=== PATIENT | female | born 1975 | race Caucasian/White ===

== ENCOUNTER 2016-05-17 06:00 | Emergency (ER) | payer OTHER ==
[2016-05-17 06:48] VITALS: BP 119/67; PULSE 81; TEMP 98.3; BMI 34.7
[2016-05-17] MEDS ORDERED: IBUPROFEN 400 MG TABLET (FP) PO ONE ×2 (08:45→08:52)
--- NOTE | 2016-05-17 08:52 | PDOC ---
History of Present Illness - General Chief Complaint: Pain Stated Complaint: RT WRIST PAIN Time Seen by Provider: 05/17/16 08:37 History Source: Patient - History of Present Illness Occurred: reports: other (last night) Upper Extremity Pain Location: right: wrist Past History - Past Medical History Allergies/Adverse Reactions: Allergies Allergy/AdvReac Type Severity Reaction Status Date / Time levofloxacin [From Levaquin] Allergy Mild Itching Verified 02/09/16 06:08 PECANS Allergy Hives Uncoded 02/09/16 06:08 WALNUTS Allergy Uncoded 02/09/16 06:08 Home Medications: Ambulatory Orders Loratadine [Claritin -] 10 mg PO DAILY 11/27/15 Fluticasone/Salmeterol [Advair 250-50 Diskus] 1 each IH BID 02/09/16 Ibuprofen [Motrin -] 600 mg PO TID PRN #21 tablet 02/09/16 Arm Brace [Wrist Brace] 1 each MC ASDIR #1 each 05/17/16 Ibuprofen [Motrin -] 800 mg PO Q6H #30 tablet 05/17/16 Asthma: Yes - Surgical History Appendectomy: Yes - Immunization History Immunization Up to Date: No - Psycho/Social/Smoking Cessation Hx Anxiety: No Suicidal Ideation: No Smoking Status: Yes Smoking History: Never smoked Have you smoked in the past 12 months: No Number of Cigarettes Smoked Daily: 0 If you are a former smoker, when did you quit?: june 2011 Information on smoking cessation initiated: No Hx Alcohol Use: No Drug/Substance Use Hx: No Substance Use Type: None Hx Substance Use Treatment: No Review of Systems - Review of Systems Constitutional: No: Chills, Fever Musculoskeletal: Yes: Joint Pain. No: Joint Swelling Neurological: No: Numbness, Tingling *Physical Exam - Vital Signs Last Vital Signs Temp Pulse Resp BP Pulse Ox 98.3 F 81 20 119/67 98 05/17/16 06:46 05/17/16 06:46 05/17/16 06:46 05/17/16 06:46 05/17/16 06:46 - Physical Exam General Appearance: Yes: Appropriately Dressed. No: Apparent Distress HEENT: positive: Normal Voice Neck: positive: Supple Respiratory/Chest: negative: Respiratory Distress Musculoskeletal: positive: Normal Inspection Extremity: positive: Normal Inspection, Tender. negative: Swelling (to R wrist diffusely, no swelling or skin changes, no sensory change when nerve is tapped, unabel to jamila phalens's) Medical Decision Making - Medical Decision Making 05/17/16 08:53 40-year-old female, denies any past medical history, here with right wrist pain. Patient states she developed wrist pain last night. States pain located to right wrist diffusely, described as achy and worse with any movement. No sensory changes. Has not taken anything for symptoms. Patient states she believes she might have carpal tunnel because she uses computer daily at work. Patient well-appearing and stable with diffuse tenderness to palpation to R wrist, no swelling. Neg tinel's test and unable to tolerate phalan's 2/2 pain. Pain most likely muscular, i.e., overuse, carpal tunnel, etc. Will dc with pain control wrist brace and orthopedic follow-up 05/17/16 08:58 *DC/Admit/Observation/Transfer Diagnosis at time of Disposition: Wrist pain, right - Discharge Dispostion Disposition: HOME Condition at time of disposition: Good - Prescriptions Prescriptions: Ibuprofen [Motrin -] 800 mg PO Q6H #30 tablet Arm Brace [Wrist Brace] 1 each ASDIR #1 each - Patient Instructions Additional Instructions: Please follow up with orthopedics if pain continues
--- NOTE | 2016-05-17 13:11 | PDOC ---
*Physical Exam - Vital Signs Last Vital Signs Temp Pulse Resp BP Pulse Ox 98.3 F 81 20 119/67 98 05/17/16 06:46 05/17/16 06:46 05/17/16 06:46 05/17/16 06:46 05/17/16 06:46 ED Treatment Course - Medications Given in the ED: ED Medications Discontinued Medications Generic Name Dose Route Start Last Admin Trade Name Cici PRN Reason Stop Dose Admin Ibuprofen 800 mg 05/17/16 08:45 05/17/16 08:55 Motrin - PO 05/17/16 08:46 800 mg ONCE ONE Administration Medical Decision Making - Medical Decision Making The patient was seen and evaluated in conjunction with JF Mccray under my direct supervision, ancillary studies were reviewed. I independently interviewed and evaluated the patient and I agree with the plan as outlined by JF Mccray . *DC/Admit/Observation/Transfer Diagnosis at time of Disposition: Wrist pain, right - Prescriptions Prescriptions: Ibuprofen [Motrin -] 800 mg PO Q6H #30 tablet Arm Brace [Wrist Brace] 1 each ASDIR #1 each - Referrals Referrals: Phillip Haas MD [Primary Care Provider] - - Patient Instructions Additional Instructions: Please follow up with orthopedics if pain continues - Post Discharge Activity
== END 2016-05-17 09:00 | disposition home or self-care (01) ==
LOC: JER 06:00
DX: M25.531 Pain in right wrist (principal); M70.831 Other soft tissue disorders related to use, overuse and pressure, right forearm; Y93.C1 Activity, computer keyboarding; J45.909 Unspecified asthma, uncomplicated
CPT/HCPCS: 99282-25

== ENCOUNTER → 2016-08-05 | Emergency (ER) | payer OTHER ==
[~2016-08-05] MED LIST: ACETAMINOPHEN INJECTION 0 ML IVPB ONE
[2016-08-05 16:08] VITALS: BP 119/82; PULSE 94; TEMP 98.2; BMI 34.7
[2016-08-05 19:02] LABS: URINE APPEARANCE SLCLOUDY; URINE BILIRUBIN NEGATIVE (NEGATIVE); URINE BLOOD NEGATIVE (NEGATIVE); URINE COLOR LTYELLOW; URINE GLUCOSE (UA) NEGATIVE (NEGATIVE); URINE KETONE NEGATIVE (NEGATIVE); URINE LEUK ESTERASE NEGATIVE (NEGATIVE); URINE NITRITE NEGATIVE (NEGATIVE); URINE PROTEIN NEGATIVE (NEGATIVE); URINE UROBILINOGEN NEGATIVE E.U./dl (0.2-1.0)
== END | disposition left against medical advice (07) ==
LOC: JER 15:58
DX: Z53.21 Procedure and treatment not carried out due to patient leaving prior to being seen by health care provider (principal)
CPT/HCPCS: 81003; 84703; 99282-25

== ENCOUNTER 2016-09-06 11:32 | Emergency (ER) | payer OTHER ==
[2016-09-06 11:42] VITALS: TEMP 98.2; BMI 34.7
--- NOTE | 2016-09-06 11:55 | PDOC ---
History of Present Illness - General History Source: Patient, Old Records Exam Limitations: No Limitations - History of Present Illness Initial Comments: 09/06/16 12:39 The patient is a 40 year old female with past medical history of asthma who presents to the ED with vaginal bleeding that began today. The patient states that she is 5 weeks . She reports bright red heavy bleeding today but denies any clotting. She also reports that she has been experiencing lower abdominal pain since before she even found out she was , which has worsened today. The patient reports having prior pregnancies where all were full term and without complications. She denies any recent illness, fever, chills, nausea, vomiting, diarrhea, cough, shortness of breath, chest pain, or urinary symptoms. COLORECTAL SURGEON: Jessica Griffith <Bijal Cantrell - Last Filed: 09/06/16 15:08> <Radhika Shukla - Last Filed: 09/07/16 10:20> - General Chief Complaint: Vaginal Bleeding Stated Complaint: 5 WKS/VAGINAL BLEEDING/POSS MISCAR Time Seen by Provider: 09/06/16 11:52 Past History <Bijal Cantrell - Last Filed: 09/06/16 15:08> - Past Medical History Asthma: Yes - Surgical History Appendectomy: Yes - Immunization History Immunization Up to Date: No - Psycho/Social/Smoking Cessation Hx Anxiety: No Suicidal Ideation: No Smoking Status: Yes Smoking History: Never smoked Have you smoked in the past 12 months: No Number of Cigarettes Smoked Daily: 0 If you are a former smoker, when did you quit?: june 2011 Hx Alcohol Use: No Drug/Substance Use Hx: No Substance Use Type: None Hx Substance Use Treatment: No <Radhika Shukla - Last Filed: 09/07/16 10:20> - Past Medical History Allergies/Adverse Reactions: Allergies Allergy/AdvReac Type Severity Reaction Status Date / Time levofloxacin [From Levaquin] Allergy Mild Itching Verified 09/06/16 11:42 PECANS Allergy Hives Uncoded 09/06/16 11:42 WALNUTS Allergy Uncoded 09/06/16 11:42 Home Medications: Ambulatory Orders Loratadine [Claritin -] 10 mg PO DAILY 11/27/15 Fluticasone/Salmeterol [Advair 250-50 Diskus] 1 each IH BID 02/09/16 Ibuprofen [Motrin -] 600 mg PO TID PRN #21 tablet 02/09/16 Arm Brace [Wrist Brace] 1 each MC ASDIR #1 each 05/17/16 Ibuprofen [Motrin -] 800 mg PO Q6H #30 tablet 05/17/16 Review of Systems - Review of Systems Able to Perform ROS?: Yes Comments:: 09/06/16 12:39 GENERAL/CONSTITUTIONAL: No fever or chills. No weakness. HEAD, EYES, EARS, NOSE AND THROAT: No change in vision. No ear pain or discharge. No sore throat. CARDIOVASCULAR: No chest pain or shortness of breath. RESPIRATORY: No cough, wheezing, or hemoptysis. GASTROINTESTINAL: Present: lower abdominal pain No nausea, vomiting, diarrhea or constipation. GENITOURINARY: Present: vaginal bleeding No dysuria, frequency, or change in urination. MUSCULOSKELETAL: No joint or muscle swelling or pain. No neck or back pain. SKIN: No rash NEUROLOGIC: No headache, vertigo, loss of consciousness, or change in strength/ sensation. ENDOCRINE: No increased thirst. No abnormal weight change. HEMATOLOGIC/LYMPHATIC: No anemia, easy bleeding, or history of blood clots. ALLERGIC/IMMUNOLOGIC: No hives or skin allergy. All Other Systems: Reviewed and Negative <Bijal Cantrell - Last Filed: 09/06/16 15:08> *Physical Exam - Vital Signs Last Vital Signs Temp Pulse Resp BP Pulse Ox 98.2 F 88 20 113/60 99 09/06/16 11:39 09/06/16 11:39 09/06/16 11:39 09/06/16 11:39 09/06/16 11:39 - Physical Exam Comments: 09/06/16 12:43 <Bijal siegel - Last Filed: 09/06/16 15:08> - Vital Signs Last Vital Signs Temp Pulse Resp BP Pulse Ox 98.2 F 88 20 113/60 99 09/06/16 11:39 09/06/16 11:39 09/06/16 11:39 09/06/16 11:39 09/06/16 11:39 - Physical Exam Comments: GENERAL: Awake, alert, and fully oriented, in no acute distress HEAD: No signs of trauma EYES: PERRLA, EOMI, sclera anicteric, conjunctiva clear ENT: Auricles normal inspection, hearing grossly normal, nares patent, oropharynx clear without exudates. Moist mucosa NECK: Normal ROM, supple, no lymphadenopathy, JVD, or masses LUNGS: Breath sounds equal, clear to auscultation bilaterally. No wheezes, and no crackles HEART: Regular rate and rhythm, normal S1 and S2, no murmurs, rubs or gallops ABDOMEN: Soft, nontender, normoactive bowel sounds. No guarding, no rebound. No masses EXTREMITIES: Normal range of motion, no edema. No clubbing or cyanosis. No cords, erythema, or tenderness NEUROLOGICAL: Cranial nerves II through XII grossly intact. Normal speech, normal gait SKIN: Warm, Dry, normal turgor, no rashes or lesions noted. : No external lesions. +Mod blood in the vault. Os closed. Adnexae nontender. <Radhika Shukla - Last Filed: 09/07/16 10:20> ED Treatment Course - LABORATORY CBC & Chemistry Diagram: 09/06/16 12:09 09/06/16 12:09 - RADIOLOGY Radiograph Interpretation: 09/06/16 14:31 Transvaginal ultrasound as reviewed by Dr. Edwards reports 2.5 cm fluid stricture seen in left superolateral aspect of the uterus. It is undetermined if this represents anembryonic intrauterine gestation in an unusual eccentric location versus possibility of interstitial ectopic . <Bijal Cantrell - Last Filed: 09/06/16 15:08> - LABORATORY CBC & Chemistry Diagram: 09/06/16 12:09 09/06/16 12:09 <Radhika Shukla - Last Filed: 09/07/16 10:20> Medical Decision Making - Medical Decision Making 09/06/16 14:52 Phone call placed to patient's COLORECTAL SURGEON. Awaiting call back 09/06/16 15:06 Second phone call placed to Dr. Griffith. Call connected and case discussed. <Bijal Cantrell - Last Filed: 09/06/16 15:08> - Medical Decision Making Case d/w Dr. Griffith via phone. History and US findings are most consistent with a miscarriage in progress. She does not want any intervention at this time. Recommended close outpatient follow-up, call her office on Thursday (it is currently Thursday) for follow-up. Counseled patient to return if she has heavy bleeding and/or symptoms of anemia. <Radhika Shukla - Last Filed: 09/07/16 10:20> *DC/Admit/Observation/Transfer - Attestations Scribe Attestion: 09/06/16 12:43 Documentation prepared by Bijal Cantrell, acting as medical record librarians teacher for Radhika Shukla MD. <Bijal Cantrell - Last Filed: 09/06/16 15:08> - Discharge Dispostion Admit: No <Radhika Shukla - Last Filed: 09/07/16 10:20> Diagnosis at time of Disposition: Miscarriage, threatened, early - Discharge Dispostion Disposition: HOME Condition at time of disposition: Stable - Referrals Referrals: Jessica Griffith MD [Staff Physician] - - Patient Instructions Printed Discharge Instructions: DI for Threatened Additional Instructions: CALL DR. GRIFFITH FOR APPOINTMENT ON THURSDAY. IF THE BLEEDING GETS HEAVY, YOU GET LIGHTHEADED, OR ANY OTHER CONCERNS, RETURN TO THE ER IMMEDIATELY. YOU MAY CONTINUE TO HAVE SOME BLEEDING AND CRAMPING.
[2016-09-06 12:17] LABS: BASOPHIL 0.7 % (0-2.0); EOSINOPHIL 2.4 % (0-4.5); MCH 32.4 pg (25.7-33.7); MCHC 34.7 g/dl (32.0-36.0); MEAN CELL VOLUME 93.4 fl (80-96); MEAN PLT VOLUME 7.7 fl (7.5-11.1); NEUTROPHILS 62.5 % (42.8-82.8); PLATELET COUNT 251 K/MM3 (134-434); RDW 13.7 % (11.6-15.6); WHITE BLOOD COUNT 9.7 K/mm3 (4.0-10.0)
[2016-09-06 12:18] LABS: URINE APPEARANCE CLOUDY; URINE BILIRUBIN NEGATIVE (NEGATIVE); URINE COLOR RED; URINE GLUCOSE (UA) NEGATIVE (NEGATIVE); URINE KETONE NEGATIVE (NEGATIVE); URINE NITRITE NEGATIVE (NEGATIVE); URINE UROBILINOGEN NEGATIVE E.U./dl (0.2-1.0)
[2016-09-06] MEDS ORDERED: ACETAMINOPHEN 1000 MG/100 ML VIAL (NON FORMULARY) IVPB ONE (12:34)
[2016-09-06] MEDS ORDERED: SODIUM CHLORIDE 1,000 ML IV STA (12:34)
[2016-09-06 12:40] LABS: URINE BLOOD 2+ (NEGATIVE); URINE LEUK ESTERASE TRACE (NEGATIVE); URINE PROTEIN 2+ (NEGATIVE)
[2016-09-06 12:43] LABS: ALBUMIN 3.2 g/dl (3.4-5.0); ANION GAP 10 (8-16); BILIRUBIN,TOTAL 0.7 mg/dL (0.2-1.0); CALCIUM 8.8 mg/dL (8.5-10.1); CO2 23 mmol/L (21-32); CREATININE 0.6 mg/dL (0.55-1.02); GLUCOSE,RANDOM 98 mg/dL (74-106); SGOT/AST 15 U/L (15-37); SGPT/ALT 20 U/L (12-78); TOT PROT 6.3 g/dl (6.4-8.2)
[2016-09-06 12:58] LABS: ALK PHOS 100 U/L (45-117)
[2016-09-06 13:01] LABS: URINE RBC 6122 /hpf (0-3)
[2016-09-06] MEDS ORDERED: ACETAMINOPHEN INJECTION 100 ML IVPB ONE (13:04)
[2016-09-06 15:31] VITALS: BP 112/80; PULSE 89
== END 2016-09-06 15:30 | disposition home or self-care (01) ==
LOC: JER 11:32
DX: O02.1 Missed abortion (principal); Z3A.01 Less than 8 weeks gestation of pregnancy
CPT/HCPCS: 36415; 76817-TC; 80053; 81003; 81015; 84702; 85025; 86850; 86900; 86901; 99283-25

== ENCOUNTER 2016-10-21 11:31 | Inpatient (IN) | payer OTHER ==
[2016-10-21 11:42] VITALS: BMI 34.7
--- NOTE | 2016-10-21 12:40 | PDOC ---
Attending Attestation - Resident Resident Name: JoseShahab - ED Attending Attestation I have performed the following: I have examined & evaluated the patient, The case was reviewed & discussed with the resident, I agree w/resident's findings & plan, Exceptions are as noted - HPI HPI: 40 yo F sent by PMD for cellulitis to L foot. She states that she noticed a small swollen area which rapidly became more erythematous. She saw Dr. Haas for it, he performed an I&D, with bloody drainage and extraction of a small feather. She is uncertain how the feather came to be in her skin. She was started on Bactrim, but the redness worsened. Yesterday she was given a dose of rocephin in Dr. Haas's office, but the redness has worsened. She was sent to ED for failure of outpatient treatment for the cellulitis. - Physicial Exam PE: GENERAL: Awake, alert, and fully oriented, in no acute distress HEAD: No signs of trauma EYES: PERRLA, EOMI, sclera anicteric, conjunctiva clear ENT: Auricles normal inspection, hearing grossly normal, nares patent, oropharynx clear without exudates. Moist mucosa NECK: Normal ROM, supple, no lymphadenopathy, JVD, or masses LUNGS: Breath sounds equal, clear to auscultation bilaterally. No wheezes, and no crackles HEART: Regular rate and rhythm, normal S1 and S2, no murmurs, rubs or gallops ABDOMEN: Soft, nontender, normoactive bowel sounds. No guarding, no rebound. No masses EXTREMITIES: Normal range of motion. No clubbing or cyanosis. No cords, erythema, or tenderness NEUROLOGICAL: Cranial nerves II through XII grossly intact. Normal speech, normal gait SKIN: Warm, Dry, normal turgor. L foot with erythema over the 3rd and 4th toes, with serosanguineous drainage from the same. Erythema and swelling extending to the level of the ankle. - Medical Decision Making Patient with cellulitis, failed outpatient treatment. Will start on vanco. Wound culture sent in ED, however, patient was already on Bactrim as an outpatient, this may obscure the results.
--- NOTE | 2016-10-21 12:44 | PDOC ---
History of Present Illness <Radhika Shukla - Last Filed: 10/21/16 14:40> - History of Present Illness Initial Comments: 10/21/16 12:44 40F w/ no significant PMH presenting with 6 days of left foot infection. Pt reports being in her USOH until 6 days ago when she woke up with a small red papule on her left foot. It progressed in size, started causing her pain, and her foot began swelling up. Yesterday, pt went to PMD (Dr. Lozano), had a temp of 100.8 with a wbc count of 11.2. They performed an I&D which drained "mostly blood and a feather," gave IV rocephin and prescribed bactrim. Pt was told to come back today to check on it, and was then instructed to come to ED. Pt reports 10/10 pain and no subjective fevers or chills. 10/21/16 12:52 10/21/16 15:00 <Shahab Garcia - Last Filed: 10/21/16 15:47> - General Chief Complaint: Wound Infection Stated Complaint: PCP SENT Time Seen by Provider: 10/21/16 12:16 Past History <Radhika Shukla - Last Filed: 10/21/16 14:40> - Past Medical History Asthma: Yes Comment:: 10/21/16 12:50 Asthma Fibroids Appendectomy and "some type of bowel surgery as child" - Surgical History Appendectomy: Yes - Immunization History Immunization Up to Date: No - Psycho/Social/Smoking Cessation Hx Anxiety: No Suicidal Ideation: No Smoking Status: Yes Smoking History: Former smoker Have you smoked in the past 12 months: No Number of Cigarettes Smoked Daily: 0 If you are a former smoker, when did you quit?: 3yrs Information on smoking cessation initiated: No Hx Alcohol Use: No Drug/Substance Use Hx: No Substance Use Type: None Hx Substance Use Treatment: No <Shahab Garcia - Last Filed: 10/21/16 15:47> - Past Medical History Allergies/Adverse Reactions: Allergies Allergy/AdvReac Type Severity Reaction Status Date / Time levofloxacin [From Levaquin] Allergy Mild Itching Verified 10/21/16 11:42 PECANS Allergy Hives Uncoded 10/21/16 11:42 WALNUTS Allergy Uncoded 10/21/16 11:42 Home Medications: Ambulatory Orders Loratadine [Claritin -] 10 mg PO DAILY 11/27/15 Fluticasone/Salmeterol [Advair 250-50 Diskus] 1 each IH BID 02/09/16 Acetaminophen W/ Codeine #3 [Tylenol # 3 -] 1 tab PO TID PRN 10/21/16 Sulfamethoxazole/Trimethoprim [Bactrim Ds -] 1 tab PO DAILY 10/21/16 Review of Systems - Review of Systems Comments:: 10/21/16 12:51 Denies night sweats, chills, [place], dizziness, chest pain, palpitations, SOB, wheezing, n/v/d/c, abdominal pain, dysuria, urgency, frequency, and any extremity pain or swelling other than on left foot 10/21/16 15:37 10/21/16 15:40 <Shahab Garcia - Last Filed: 10/21/16 15:47> *Physical Exam - Vital Signs Last Vital Signs Temp Pulse Resp BP Pulse Ox 98.8 F 114 H 18 127/90 98 10/21/16 11:34 10/21/16 11:34 10/21/16 11:34 10/21/16 11:34 10/21/16 11:34 <Radhika Shukla - Last Filed: 10/21/16 14:40> - Vital Signs Last Vital Signs Temp Pulse Resp BP Pulse Ox 98.8 F 114 H 18 127/90 98 10/21/16 11:34 10/21/16 11:34 10/21/16 11:34 10/21/16 11:34 10/21/16 11:34 - Physical Exam Comments: 10/21/16 12:53 General: middle aged female, A&Ox3 in NAD Cardiac: tachycardic, normal rhythm, no m/r/g Pulm: CTAB, no wheezing, no rales Abd: soft, NT, ND, no organomegaly Extremities: L foot has a rash which is erythematous, swollen up to ankle, warm to touch, has site of incision between 3rd and 4th toes. There is a small area of fluctuance on distal dorsum of foot. The rash is about 10cm. 10/21/16 13:12 <Shahab Garcia - Last Filed: 10/21/16 15:47> ED Treatment Course - LABORATORY CBC & Chemistry Diagram: 10/21/16 12:49 10/21/16 12:49 - ADDITIONAL ORDERS Additional order review: Laboratory Results 10/21/16 12:49 Sodium 138 Potassium 4.3 Chloride 104 Carbon Dioxide 28 D Anion Gap 6 L BUN 10 D Creatinine 0.9 D Creat Clearance w eGFR > 60 Random Glucose 125 H D Calcium 8.4 L Total Bilirubin 0.7 AST 17 ALT 21 Alkaline Phosphatase 97 Total Protein 6.4 Albumin 3.4 10/21/16 12:49 RBC 4.15 MCV 95.5 MCHC 34.4 RDW 14.2 MPV 7.6 Neutrophils % 64.7 Lymphocytes % 26.1 Monocytes % 5.6 Eosinophils % 3.2 Basophils % 0.4 <Radhika Shukla - Last Filed: 10/21/16 14:40> - LABORATORY CBC & Chemistry Diagram: 10/21/16 12:49 10/21/16 12:49 <Shahab Garcia - Last Filed: 10/21/16 15:47> Medical Decision Making - Medical Decision Making 10/21/16 13:13 40F w/ no significant PMH presenting with worsening foot infection and tachycardia despite receiving IV ceftriaxone by PMD and being started on PO bactrim, likely cellulitis possibly secondary to MRSA. -obtain blood and wound cx -pain control with percocet -cbc with diff, bmp -foot XR- demonstrates no osteo or gas gangrene. -US -empiric abx with 1g of vanc -pt developed widespread pruritis and rash over chest, so was given 25mg of benadryl and pepcid. 10/21/16 13:17 10/21/16 15:01 10/21/16 15:30 <Shahab Garcia - Last Filed: 10/21/16 15:47> *DC/Admit/Observation/Transfer - Discharge Dispostion Admit: Yes <Radhika Shukla - Last Filed: 10/21/16 14:40> - Discharge Dispostion Admit: Yes - Attestations Physician Attestion: 10/21/16 13:17 I, Dr. Shahab Garcia, attest that this document has been prepared under my direction and personally reviewed by me in its entirety. I further attest, that it accurately reflects all work, treatment, procedures and medical decision -making performed by me. <Shahab Garcia - Last Filed: 10/21/16 15:47> Diagnosis at time of Disposition: Cellulitis of left foot - Discharge Dispostion Condition at time of disposition: Stable - Referrals
[2016-10-21] MEDS ORDERED: VANCOMYCIN 1 GRAM (PRE-DOCKED) 1,000 MG/250 ML BAG IVPB ONE (13:10)
[2016-10-21 13:57] LABS: BASOPHIL 0.4 % (0-2.0); EOSINOPHIL 3.2 % (0-4.5); MCH 32.9 pg (25.7-33.7); MCHC 34.4 g/dl (32.0-36.0); MEAN CELL VOLUME 95.5 fl (80-96); MEAN PLT VOLUME 7.6 fl (7.5-11.1); NEUTROPHILS 64.7 % (42.8-82.8); PLATELET COUNT 244 K/MM3 (134-434); RDW 14.2 % (11.6-15.6); WHITE BLOOD COUNT 9.2 K/mm3 (4.0-10.0)
[2016-10-21 14:16] LABS: ALBUMIN 3.4 g/dl (3.4-5.0); ANION GAP 6 (8-16); BILIRUBIN,TOTAL 0.7 mg/dL (0.2-1.0); CALCIUM 8.4 mg/dL (8.5-10.1); CO2 28 mmol/L (21-32); CREATININE 0.9 mg/dL (0.55-1.02); GLUCOSE,RANDOM 125 mg/dL (74-106); SGOT/AST 17 U/L (15-37); SGPT/ALT 21 U/L (12-78); TOT PROT 6.4 g/dl (6.4-8.2)
[2016-10-21 14:17] LABS: ALK PHOS 97 U/L (45-117)
[2016-10-21] MEDS ORDERED: FAMOTIDINE 20 MG/50 ML IVPB 50 ML IVPB ONE ×2 (14:41→15:05)
--- NOTE | 2016-10-21 14:51 | HP ---
Admitting History and Physical - Primary Care Physician PCP: Phillip Haas - Admission Chief Complaint: sent from my office for worsening left foot infection failed on oral antibiotics History of Present Illness: patient sent from my office, had an I and D in my office wbc 11.2 and fever 100.8, found to have a bird feather lodged in her foot. given iv rocephin and po bactrim however when she returned today and the skin infection worse and spreading. History Source: Patient - Past Medical History Pulmonary: Yes: Asthma ...LMP: 06/21/12 - Smoking History Smoking history: Former smoker Have you smoked in the past 12 months: No Aproximately how many cigarettes per day: 0 If you are a former smoker, when did you quit?: 3yrs - Alcohol/Substance Use Hx Alcohol Use: No Home Medications - Allergies Allergies/Adverse Reactions: Allergies Allergy/AdvReac Type Severity Reaction Status Date / Time levofloxacin [From Levaquin] Allergy Mild Itching Verified 10/21/16 11:42 PECANS Allergy Hives Uncoded 10/21/16 11:42 WALNUTS Allergy Uncoded 10/21/16 11:42 - Home Medications Home Medications: Ambulatory Orders Loratadine [Claritin -] 10 mg PO DAILY 11/27/15 Fluticasone/Salmeterol [Advair 250-50 Diskus] 1 each IH BID 02/09/16 Acetaminophen W/ Codeine #3 [Tylenol # 3 -] 1 tab PO TID PRN 10/21/16 Sulfamethoxazole/Trimethoprim [Bactrim Ds -] 1 tab PO DAILY 10/21/16 Review of Systems - Review of Systems Constitutional: reports: No Symptoms Eyes: reports: No Symptoms HENT: reports: No Symptoms Neck: reports: No Symptoms Cardiovascular: reports: No Symptoms Respiratory: reports: No Symptoms Gastrointestinal: reports: No Symptoms Genitourinary: reports: No Symptoms Musculoskeletal: reports: No Symptoms Integumentary: reports: Wound (left foot 6cm worsening rash/erythema) Neurological: reports: No Symptoms Endocrine: reports: No Symptoms Hematology/Lymphatic: reports: No Symptoms Physical Examination Vital Signs: Vital Signs Temperature 98.8 F 10/21/16 11:34 Pulse Rate 114 H 10/21/16 11:34 Respiratory Rate 18 10/21/16 11:34 Blood Pressure 127/90 10/21/16 11:34 O2 Sat by Pulse Oximetry (%) 98 10/21/16 11:34 Constitutional: Yes: Moderate Distress Eyes: Yes: WNL HENT: Yes: WNL Neck: Yes: WNL Cardiovascular: Yes: WNL Respiratory: Yes: WNL Gastrointestinal: Yes: WNL Renal/: Yes: WNL Musculoskeletal: Yes: Joint Swelling Extremities: Yes: Erythema Edema: Yes Edema: LLE: 2+ Peripheral Pulses WNL: Yes Integumentary: Yes: Erythema, Other Wound/Incision: Yes: Open to air (left foot edema with erythema, tenderness oozing sanguinous fluid) Neurological: Yes: WNL ...Motor Strength: WNL Psychiatric: Yes: WNL Labs: CBC, BMP 10/21/16 12:49 10/21/16 12:49 Imaging - Results X-ray: Report Reviewed Problem List - Problems (1) Cellulitis of left foot Code(s): L03.116 - CELLULITIS OF LEFT LOWER LIMB Assessment/Plan Iv abx sono/xray id consult pain control
--- NOTE | 2016-10-21 16:47 | PDOC ---
*Physical Exam - Vital Signs Last Vital Signs Temp Pulse Resp BP Pulse Ox 98.8 F 61 18 121/69 100 10/21/16 11:34 10/21/16 15:38 10/21/16 15:38 10/21/16 15:38 10/21/16 15:38 ED Treatment Course - LABORATORY CBC & Chemistry Diagram: 10/21/16 12:49 10/21/16 12:49 - ADDITIONAL ORDERS Additional order review: Laboratory Results 10/21/16 12:49 Sodium 138 Potassium 4.3 Chloride 104 Carbon Dioxide 28 D Anion Gap 6 L BUN 10 D Creatinine 0.9 D Creat Clearance w eGFR > 60 Random Glucose 125 H D Calcium 8.4 L Total Bilirubin 0.7 AST 17 ALT 21 Alkaline Phosphatase 97 Total Protein 6.4 Albumin 3.4 10/21/16 12:49 RBC 4.15 MCV 95.5 MCHC 34.4 RDW 14.2 MPV 7.6 Neutrophils % 64.7 Lymphocytes % 26.1 Monocytes % 5.6 Eosinophils % 3.2 Basophils % 0.4 - Medications Given in the ED: ED Medications Discontinued Medications Generic Name Dose Route Start Last Admin Trade Name Collinq PRN Reason Stop Dose Admin Diphenhydramine HCl 25 mg 10/21/16 14:38 10/21/16 14:50 Benadryl Injection - IVPUSH 10/21/16 14:39 25 mg ONCE ONE Administration Famotidine/Sodium Chloride 50 mls @ 100 mls/hr 10/21/16 14:41 10/21/16 15:06 Pepcid 20 Mg Premixed Ivpb - IVPB 10/21/16 15:10 100 mls/hr ONCE ONE Administration Oxycodone/Acetaminophen 1 combo 10/21/16 14:15 10/21/16 14:30 Percocet 5/325 - PO 10/21/16 14:16 1 combo ONCE ONE Administration Vancomycin HCl 1,000 mg 10/21/16 13:10 10/21/16 14:23 Vancomycin (Pre-Docked) IVPB 10/21/16 13:11 1,000 mg ONCE ONE Administration Protocol Progress Note - Progress Note Progress Note: requested to perform ultrasound of left foot r/o abscess focused ED ultrasound limited left foot, indication : r/o abscess cobble stoning noted anterior dorsum foot. dorsum of proximal portion of third toe, 1.0 x 0.9 cm. impression: small toe abscess 0.9 x 0.9 cm, foot cellulitis cirilli Procedure note: I& D performed, drained small amount serosanginous material. irrigated. and dressed 1%lidocaine used. tolerated well. cirilli *DC/Admit/Observation/Transfer Diagnosis at time of Disposition: Cellulitis of left foot - Discharge Dispostion Condition at time of disposition: Stable
[2016-10-21] MEDS ORDERED: PNEUMOC 13-VAL CONJ-DIP CRM/PF 0.5 ML DISP.SYRIN IM ONE (17:02)
[2016-10-21] MEDS: oxyCODONE HCL 5 MG TABLET PO PRN (20:51)
[2016-10-21] MEDS: ACETAMINOPHEN 325 MG TABLET (FP) PO PRN (20:52)
[2016-10-21] MEDS ORDERED: oxyCODONE HCL 5 MG TABLET PO PRN (21:00)
[2016-10-21] MEDS: FLUTICASONE/SALMETEROL 100 MCG/50 MCG DISKUS IH SCH (22:35)
[2016-10-22] MEDS: ACETAMINOPHEN 325 MG TABLET (FP) PO PRN ×3 (04:00→17:02)
[2016-10-22] MEDS: oxyCODONE HCL 5 MG TABLET PO PRN ×3 (04:00→17:01)
[2016-10-22] MEDS ORDERED: PT OWN MED DRAWER 7, Y5N ONE (09:46)
[2016-10-22] MEDS: FLUTICASONE/SALMETEROL 100 MCG/50 MCG DISKUS IH SCH ×2 (09:48→22:52)
--- NOTE | 2016-10-22 14:03 | CONSULT ---
Consult Consult Specialty:: infectious diseases Reason for Consultation:: cellulitis of the left foot with abscess at the base of the 3rd toe - History of Present Illness Chief Complaint: pain and swelling of the left leg and abscess of the 3rd toe History of Present Illness: 40 yo F swith pmh of asthma coming in with cellulitis of L foot with abscess drained from the 3rd toe of the foot. She states that she noticed a small swollen area which rapidly became more erythematous. She went to her primary doctos office an I&D, with bloody drainage and extraction of a small feather. She is uncertain how the feather came to be in her skin. She was started on Bactrim, but the redness worsened. Yesterday she was given a dose of rocephin in pcp . office, but the redness has worsened. She was admitted for worsening cellulitits of the left foot patient denies that she has diabetes or any other medical issues - History Source History Provided By: Patient Limitations to Obtaining History: No Limitations - Past Medical History Pulmonary: Yes: Asthma ...LMP: 06/21/12 - Alcohol/Substance Use Hx Alcohol Use: No - Smoking History Smoking history: Former smoker Have you smoked in the past 12 months: No Aproximately how many cigarettes per day: 0 If you are a former smoker, when did you quit?: 3yrs Home Medications - Allergies Allergies/Adverse Reactions: Allergies Allergy/AdvReac Type Severity Reaction Status Date / Time levofloxacin [From Levaquin] Allergy Mild Itching Verified 10/21/16 11:42 PECANS Allergy Hives Uncoded 10/21/16 11:42 WALNUTS Allergy Uncoded 10/21/16 11:42 - Home Medications Home Medications: Ambulatory Orders Loratadine [Claritin -] 10 mg PO DAILY 11/27/15 Fluticasone/Salmeterol [Advair 250-50 Diskus] 1 each IH BID 02/09/16 Acetaminophen W/ Codeine #3 [Tylenol # 3 -] 1 tab PO TID PRN 10/21/16 Sulfamethoxazole/Trimethoprim [Bactrim Ds -] 1 tab PO DAILY 10/21/16 Review of Systems - Review of Systems Constitutional: reports: No Symptoms Eyes: reports: No Symptoms HENT: reports: No Symptoms Neck: reports: No Symptoms Cardiovascular: reports: No Symptoms Respiratory: reports: No Symptoms Gastrointestinal: reports: No Symptoms Genitourinary: reports: No Symptoms Musculoskeletal: reports: Muscle Pain Integumentary: reports: Change in Color, Erythema, Wound Neurological: reports: No Symptoms Endocrine: reports: No Symptoms Hematology/Lymphatic: reports: No Symptoms Psychiatric: reports: No Symptoms Physical Exam Vital Signs: Vital Signs Temperature 98.1 F 10/22/16 09:50 Pulse Rate 90 10/22/16 09:50 Respiratory Rate 20 10/22/16 09:50 Blood Pressure 100/68 10/22/16 09:50 O2 Sat by Pulse Oximetry (%) 99 10/21/16 22:00 Constitutional: Yes: Well Nourished, No Distress, Calm, Obese Eyes: Yes: Conjunctiva Clear HENT: Yes: Atraumatic Neck: Yes: Supple, Trachea Midline Cardiovascular: Yes: Regular Rate and Rhythm Respiratory: Yes: Regular, CTA Bilaterally Gastrointestinal: Yes: Normal Bowel Sounds, Soft Musculoskeletal: Yes: Other Extremities: Yes: Erythema, Other Edema: LLE: 1+ Integumentary: Yes: Erythema, Other Wound/Incision: Yes: Open to air, Dressing Removed Neurological: Yes: Alert, Oriented Psychiatric: Yes: Alert, Oriented Imaging - Results X-ray: Report Reviewed, Image Reviewed Assessment/Plan after looking at the wound there is slight worry with history and with the feather coming out that if this was chronic and then it went on to get infected her esr and crp are quite high cellulitis of the left leg abscess of the 3rd toe plan will start iv abx cx results noted will check crp on thursday if the crp does not decrease then will consider mri of the foot
[2016-10-22] MEDS: PIPERACILLIN/TAZOB 3.375 GM 50 ML IVPB SCH ×2 (14:36→18:00)
[2016-10-22] MEDS ORDERED: CLINDAMYCIN IVPB 300 MG in DEXTROSE 5%-WATER - 48 ML IVPB SCH (15:00)
[2016-10-22] MEDS: MUPIROCIN 2% TOPICAL OINTMENT 22 GM TUBE TP SCH (18:39)
--- NOTE | 2016-10-22 20:12 | PN ---
Progress Note, Physician Chief Complaint: AWAKE ALERT STILL IN PAIN LEFT FOOT - Current Medication List Current Medications: Active Medications Acetaminophen (Tylenol -) 650 mg PO Q6H PRN PRN Reason: FEVER OR PAIN Last Admin: 10/22/16 17:02 Dose: 650 mg Piperacillin Sod/Tazobactam Sod (Zosyn 3.375gm Ivpb (Pre-Docked)) 50 mls @ 100 mls/hr IVPB Q8H-IV ADRIANNA PRN Reason: Protocol Last Admin: 10/22/16 18:00 Dose: Not Given Mupirocin (Bactroban 2% Ointment -) 1 applic TP DAILY ADRIANNA Last Admin: 10/22/16 18:39 Dose: 1 applic Oxycodone HCl (Roxicodone -) 10 mg PO Q6H PRN PRN Reason: PAIN Last Admin: 10/22/16 17:01 Dose: 10 mg Fluticasone/Salmeterol (Advair 100mcg/50mcg -) 1 puff IH BID ADRIANNA Last Admin: 10/22/16 09:48 Dose: 1 puff - Objective Vital Signs: Vital Signs Temperature 97.8 F 10/22/16 18:00 Pulse Rate 86 10/22/16 18:00 Respiratory Rate 20 10/22/16 18:00 Blood Pressure 108/59 10/22/16 18:00 O2 Sat by Pulse Oximetry (%) 98 10/22/16 11:00 Constitutional: Yes: Moderate Distress Eyes: Yes: WNL HENT: Yes: WNL Neck: Yes: WNL Cardiovascular: Yes: WNL Respiratory: Yes: WNL Gastrointestinal: Yes: WNL Genitourinary: Yes: WNL Musculoskeletal: Yes: WNL Extremities: Yes: WNL Edema: Yes Edema: RLE: 2+ Peripheral Pulses WNL: Yes Integumentary: Yes: Erythema Wound/Incision: Yes: Dressing Dry and Intact Neurological: Yes: WNL ...Motor Strength: WNL, LLE Psychiatric: Yes: WNL Problem List - Problems (1) Cellulitis of left foot Code(s): L03.116 - CELLULITIS OF LEFT LOWER LIMB Assessment/Plan ID NOTE REVIEWED IV ABX ESR AND CRP ELEVATED WILL NEED MRI R/O OSTEOMYELITIS IV ABX PODIATRY CONSULT PAIN CONTROL HEPARIN SQ DVT PROPHYLAXIS
[2016-10-23] MEDS: PIPERACILLIN/TAZOB 3.375 GM 50 ML IVPB SCH ×3 (02:11→17:51)
[2016-10-23] MEDS: oxyCODONE HCL 5 MG TABLET PO PRN ×3 (02:55→22:12)
[2016-10-23] MEDS: ACETAMINOPHEN 325 MG TABLET (FP) PO PRN ×3 (02:55→22:11)
[2016-10-23 07:25] LABS: MCH 32.4 pg (25.7-33.7); MCHC 34.3 g/dl (32.0-36.0); MEAN CELL VOLUME 94.6 fl (80-96); MEAN PLT VOLUME 7.4 fl (7.5-11.1); PLATELET COUNT 220 K/MM3 (134-434); RDW 14.5 % (11.6-15.6); WHITE BLOOD COUNT 8.3 K/mm3 (4.0-10.0)
[2016-10-23 08:23] LABS: ANION GAP 5 (8-16); CALCIUM 8.3 mg/dL (8.5-10.1); CO2 26 mmol/L (21-32); CREATININE 0.7 mg/dL (0.55-1.02); GLUCOSE,RANDOM 74 mg/dL (74-106)
--- NOTE | 2016-10-23 08:47 | CONSULT ---
Consult - text type - Consultation Consultation Note: Podiatry Consultation: Pleasant 40 year old F presents with L 3rd interspace infection with mild cellulitis, failure of PO outpatient therapy. Patient was seen in office by Dr. Haas, an incision and drainage was performed a small feather was removed from the third interspace. Patient notes that another incision was performed in the ED. Once procedures were done she experienced relief in pain and redness improving. She denies F/V/N/C/SOB/CP. She is afebrile, VSS. PMHx: asthma, former smoker Meds: in chart ALL: levaquin FARIDA: Pedal pulses palpable, TG wnl, CFT brisk to all toes bilaterally. On the left foot,there is a mild superficial wound third interspace with no purulent drainage, no fluctuance, surrounding periwound erythema improved, no streaking cellulitis, no lymphangitis, no soft tissue crepitus, no signs of acute infection. Minimal tenderness to palpation. WBC: 8.3 ESR: 30 Wound Cx: NSF L foot XR: no radiographic evidence of osteomyelitis, no foreign body identified Imp: 40 year old F with cellulitis L foot, secondary to foreign body vs. superimposed tinea infection 1. Continue IV abx per ID 2. Continue bactroban to L 3rd interspace daily 3. Leg elevation 4. Pain control 5. Do not believe there is acute collection in the interspace, likely a cellulitis from foreign body versus a bacterial infection superimposed on fungal infection in the interspace. May need MRI if no clinical improvement. 6. Thanks for the consult. Ena Alvarez DPM
[2016-10-23] MEDS ORDERED: PT OWN MED DRAWER 7, Y5N ONE (09:15)
[2016-10-23] MEDS: FLUTICASONE/SALMETEROL 100 MCG/50 MCG DISKUS IH SCH ×2 (09:47→21:17)
[2016-10-23] MEDS: HEPARIN NA (PORCINE) 5,000 UNITS/ML 1ML VIAL SQ SCH ×2 (09:48→21:17)
[2016-10-23] MEDS: MUPIROCIN 2% TOPICAL OINTMENT 22 GM TUBE TP SCH (09:49)
--- NOTE | 2016-10-23 13:44 | PN ---
Progress Note, Physician History of Present Illness: leg still swollen and red podiatry note noted primary note noted - Current Medication List Current Medications: Active Medications Acetaminophen (Tylenol -) 650 mg PO Q6H PRN PRN Reason: FEVER OR PAIN Last Admin: 10/23/16 02:55 Dose: 650 mg Heparin Sodium (Porcine) (Heparin -) 5,000 unit SQ BID ADRIANNA Last Admin: 10/23/16 09:48 Dose: 5,000 unit Piperacillin Sod/Tazobactam Sod (Zosyn 3.375gm Ivpb (Pre-Docked)) 50 mls @ 100 mls/hr IVPB Q8H-IV ADRIANNA PRN Reason: Protocol Last Admin: 10/23/16 09:49 Dose: 100 mls/hr Mupirocin (Bactroban 2% Ointment -) 1 applic TP DAILY [facility] Last Admin: 10/23/16 09:49 Dose: 1 applic Oxycodone HCl (Roxicodone -) 10 mg PO Q6H PRN PRN Reason: PAIN Last Admin: 10/23/16 02:55 Dose: 10 mg Fluticasone/Salmeterol (Advair 100mcg/50mcg -) 1 puff IH BID [facility] Last Admin: 10/23/16 09:47 Dose: 1 puff - Objective Vital Signs: Vital Signs Temperature 98.7 F 10/23/16 09:00 Pulse Rate 85 10/23/16 09:00 Respiratory Rate 18 10/23/16 09:00 Blood Pressure 90/59 10/23/16 09:00 O2 Sat by Pulse Oximetry (%) 98 10/23/16 10:00 Constitutional: Yes: No Distress, Calm, Obese Cardiovascular: Yes: Regular Rate and Rhythm Respiratory: Yes: Regular, CTA Bilaterally Gastrointestinal: Yes: Normal Bowel Sounds, Soft Musculoskeletal: Yes: Other Extremities: Yes: Other Edema: LLE: 1+ Integumentary: Yes: Erythema, Other Wound/Incision: Yes: Clean/Dry Neurological: Yes: Alert, Oriented Psychiatric: Yes: Alert, Oriented Labs: CBC, BMP 10/23/16 06:30 10/23/16 06:30 Assessment/Plan cellulitis of the left leg abscess of the 3rd toe still red and swelling present ordered esr and crp i think we will probably need mri plan will check esr and crp ordered rest continue abx if not improving will add another abx rest as per primary
--- NOTE | 2016-10-23 18:23 | PN ---
Progress Note, Physician Chief Complaint: AWAKE ALERT FEELING BETTER STILL HAS PAIN - Current Medication List Current Medications: Active Medications Acetaminophen (Tylenol -) 650 mg PO Q6H PRN PRN Reason: FEVER OR PAIN Last Admin: 10/23/16 14:44 Dose: 650 mg Heparin Sodium (Porcine) (Heparin -) 5,000 unit SQ BID [facility] Last Admin: 10/23/16 09:48 Dose: 5,000 unit Piperacillin Sod/Tazobactam Sod (Zosyn 3.375gm Ivpb (Pre-Docked)) 50 mls @ 100 mls/hr IVPB Q8H-IV ADRIANNA PRN Reason: Protocol Last Admin: 10/23/16 17:51 Dose: 100 mls/hr Mupirocin (Bactroban 2% Ointment -) 1 applic TP DAILY [facility] Last Admin: 10/23/16 09:49 Dose: 1 applic Oxycodone HCl (Roxicodone -) 10 mg PO Q6H PRN PRN Reason: PAIN Last Admin: 10/23/16 14:42 Dose: 10 mg Fluticasone/Salmeterol (Advair 100mcg/50mcg -) 1 puff IH BID [facility] Last Admin: 10/23/16 09:47 Dose: 1 puff - Objective Vital Signs: Vital Signs Temperature 98.5 F 10/23/16 14:24 Pulse Rate 88 10/23/16 14:24 Respiratory Rate 20 10/23/16 14:24 Blood Pressure 120/71 10/23/16 14:24 O2 Sat by Pulse Oximetry (%) 98 10/23/16 10:00 Constitutional: Yes: Mild Distress Eyes: Yes: WNL HENT: Yes: WNL Neck: Yes: WNL Cardiovascular: Yes: WNL Respiratory: Yes: WNL Gastrointestinal: Yes: WNL Genitourinary: Yes: WNL Musculoskeletal: Yes: Joint Swelling Extremities: Yes: Erythema Edema: Yes Edema: LLE: 2+ Peripheral Pulses WNL: Yes Integumentary: Yes: Erythema Wound/Incision: Yes: Dressing Dry and Intact Neurological: Yes: Other ...Motor Strength: LLE Psychiatric: Yes: WNL Labs: CBC, BMP 10/23/16 06:30 10/23/16 06:30 Problem List - Problems (1) Cellulitis of left foot Code(s): L03.116 - CELLULITIS OF LEFT LOWER LIMB Assessment/Plan IV ABX ESR/CRP IN AM CULTURES AND SENS PENDING PODIATRY AND ID F/U APPRECIATED
[2016-10-23] MEDS: diphenhydrAMINE HCL 25 MG CAPSULE (FP) PO PRN (22:11)
[2016-10-24] MEDS: PIPERACILLIN/TAZOB 3.375 GM 50 ML IVPB SCH ×2 (02:26→09:15)
[2016-10-24] MEDS ORDERED: PT OWN MED DRAWER 7, Y5N ONE (09:05)
[2016-10-24] MEDS: FLUTICASONE/SALMETEROL 100 MCG/50 MCG DISKUS IH SCH (09:13)
[2016-10-24] MEDS: MUPIROCIN 2% TOPICAL OINTMENT 22 GM TUBE TP SCH (09:14)
[2016-10-24] MEDS: HEPARIN NA (PORCINE) 5,000 UNITS/ML 1ML VIAL SQ SCH (09:14)
[2016-10-24] MEDS: diphenhydrAMINE HCL 25 MG CAPSULE (FP) PO PRN (09:15)
--- NOTE | 2016-10-24 11:18 | DS ---
Physical Examination Vital Signs: Vital Signs Temperature 98.0 F 10/24/16 06:00 Pulse Rate 81 10/24/16 06:00 Respiratory Rate 18 10/24/16 06:00 Blood Pressure 113/64 10/24/16 06:00 O2 Sat by Pulse Oximetry (%) 98 10/23/16 21:00 Constitutional: Yes: Mild Distress Eyes: Yes: WNL HENT: Yes: WNL Neck: Yes: WNL Cardiovascular: Yes: WNL Respiratory: Yes: WNL Gastrointestinal: Yes: WNL Renal/: Yes: WNL Musculoskeletal: Yes: Joint Swelling Extremities: Yes: Erythema Edema: Yes Edema: LLE: 1+ Peripheral Pulses WNL: Yes Integumentary: Yes: Erythema, Other Wound/Incision: Yes: Open to air (erythema improved, less discharge, mobility improved) Neurological: Yes: WNL ...Motor Strength: LLE Psychiatric: Yes: WNL Labs: CBC, BMP 10/23/16 06:30 10/23/16 06:30 Discharge Summary Reason For Visit: CELLULITIS OF L FOOT Current Active Problems Cellulitis of left foot (Acute) Procedures: Principal: xrays Hospital Course: admitted for left foot abscess/cellulitis, iv abx given, esr and crp trending down to normal, will change to po abx, see in my office thursday for follow up and repeat labs Condition: Stable - Instructions Diet, Activity, Other Instructions: reg diet see dr gill thursday 9am Referrals: Phillip Gill MD [Primary Care Provider] - Disposition: HOME - Home Medications Comprehensive Discharge Medication List: Ambulatory Orders Loratadine [Claritin -] 10 mg PO DAILY 11/27/15 Fluticasone/Salmeterol [Advair 250-50 Diskus] 1 each IH BID 02/09/16 Acetaminophen W/ Codeine #3 [Tylenol # 3 -] 1 tab PO TID PRN 10/21/16 Sulfamethoxazole/Trimethoprim [Bactrim Ds -] 1 tab PO DAILY 10/21/16
[2016-10-24 11:41] VITALS: BP 110/55; PULSE 78; TEMP 98.3
[2016-10-24] MEDS ORDERED: AMOX TR/POT CLAV 875MG/125MG TABLETS (FP) PO SCH (17:30)
[2016-10-24] MEDS ORDERED: DOXYCYCLINE HYCLATE 100 MG CAPSULE PO SCH (18:00)
== END 2016-10-24 11:57 | disposition home or self-care (01) | DRG 603 ==
LOC: PCPHSEMD 11:31 → JERBED 14:40 → J5S 17:02
PROVIDERS: ADMIT Family Medicine; ATTEND Family Medicine
DX: L03.116 Cellulitis of left lower limb (principal); Z87.891 Personal history of nicotine dependence
CPT/HCPCS: 36415; 73610-TC-LT; 73630-TC-LT; 80048; 80053; 83036; 85025; 85027; 85651; 86140; 87040; 87070; 87205; 90670; 99283-25; J1644

== ENCOUNTER 2017-02-25 06:00 | Emergency (ER) | payer OTHER ==
[2017-02-25] MEDS ORDERED: KETOROLAC TROMETHAMINE 60 MG/2 ML VIAL IM ONE (06:36)
[2017-02-25 06:40] VITALS: TEMP 98.2; BMI 32.9
[2017-02-25 06:57] LABS: BASOPHIL 0.7 % (0-2.0); EOSINOPHIL 3.2 % (0-4.5); MCH 32.7 pg (25.7-33.7); MEAN CELL VOLUME 93.4 fl (80-96); MEAN PLT VOLUME 7.7 fl (7.5-11.1); NEUTROPHILS 62.4 % (42.8-82.8); PLATELET COUNT 260 K/MM3 (134-434); RDW 13.5 % (11.6-15.6)
[2017-02-25 07:27] LABS: ALBUMIN 3.3 g/dl (3.4-5.0); ALK PHOS 97 U/L (45-117); ANION GAP 7 (8-16); BILIRUBIN,TOTAL 0.8 mg/dL (0.2-1.0); CO2 25 mmol/L (21-32); CREATININE 0.7 mg/dL (0.55-1.02); GLUCOSE,RANDOM 87 mg/dL (74-106); SGOT/AST 21 U/L (15-37); SGPT/ALT 28 U/L (12-78); TOT PROT 6.1 g/dl (6.4-8.2)
--- NOTE | 2017-02-25 07:36 | PDOC ---
History of Present Illness - General Chief Complaint: Chest Pain Stated Complaint: L SIDED CHEST PAIN Time Seen by Provider: 02/25/17 07:03 History Source: Patient Exam Limitations: No Limitations - History of Present Illness Initial Comments: 02/25/17 07:30 This 41 yr old female is presenting ot the ER with c/o left sided upper chest pain with dyspnea on deep breathing and left shoulder pain that is going on for around 10 days. 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 she denies fever,cough, back pain. She went to her local urgent care but was only given motrin. She took motrin two days ago and states the pain did subside but came back and hasn't taken it again. She has a hx of asthma, has not used her inhaler and denies any SOB. When to her [employer] this week and found to have a UTI and given Metronidazole? and Uribel for urinary spasms? She has been on it for a few day. PMH: asthma PSH: [facility] Dr. Haas Past History - Past Medical History Allergies/Adverse Reactions: Allergies Allergy/AdvReac Type Severity Reaction Status Date / Time levofloxacin [From Levaquin] Allergy Mild Itching Verified 02/25/17 06:35 PECANS Allergy Hives Uncoded 02/25/17 06:35 WALNUTS Allergy Uncoded 02/25/17 06:35 Home Medications: Ambulatory Orders Ibuprofen [Motrin -] 600 mg PO TID 02/25/17 Metronidazole [Flagyl -] 500 mg PO BID 02/25/17 Asthma: Yes COPD: No - Surgical History Appendectomy: Yes - Immunization History Immunization Up to Date: No - Suicide/Smoking/Psychosocial Hx Smoking Status: Yes Smoking History: Never smoked Have you smoked in the past 12 months: No Number of Cigarettes Smoked Daily: 0 If you are a former smoker, when did you quit?: 3yrs Hx Alcohol Use: No Drug/Substance Use Hx: No Substance Use Type: None Hx Substance Use Treatment: No Review of Systems - Review of Systems Able to Perform ROS?: Yes Respiratory: Yes: See HPI. No: Cough, Orthopnea, Shortness of Breath, SOB with Exertion, SOB at Rest, Stridor, Wheezing, Productive cough Cardiac (ROS): Yes: See HPI, Chest Pain. No: Edema, Irregular Heart Rate, Lightheadedness, Palpitations, Chest Tightness All Other Systems: Reviewed and Negative *Physical Exam - Vital Signs Last Vital Signs Temp Pulse Resp BP Pulse Ox 98.2 F 89 18 115/86 96 02/25/17 06:38 12 06:38 02/25/17 06:38 02/25/17 06:38 02/25/17 06:38 - Physical Exam General Appearance: Yes: Nourished, Appropriately Dressed HEENT: positive: Normal Voice, Symmetrical Respiratory/Chest: positive: Lungs Clear Cardiovascular: positive: Regular Rate Gastrointestinal/Abdominal: positive: Normal Bowel Sounds, Flat, Soft Extremity: positive: Normal Inspection Integumentary: positive: Dry, Warm, Rash (noted to back, flat, no pustules, denies itching, pt did not know she was rashing). negative: Pale, Cold, Moist, Hives, Bruising Neurologic: positive: Fully Oriented, Alert ED Treatment Course - LABORATORY CBC & Chemistry Diagram: 02/25/17 06:30 02/25/17 06:38 - ADDITIONAL ORDERS Additional order review: Laboratory Results 02/25/17 02/25/17 06:38 06:30 Sodium 141 Potassium 3.6 Chloride 109 H Carbon Dioxide 25 Anion Gap 7 L BUN 11 Creatinine 0.7 Creat Clearance w eGFR > 60 Random Glucose 87 Calcium 8.0 L Total Bilirubin 0.8 AST 21 D ALT 28 D Alkaline Phosphatase 97 Total Protein 6.1 L Albumin 3.3 L Serum , Qual Negative 02/25/17 06:30 RBC 4.13 MCV 93.4 MCHC 35.0 RDW 13.5 MPV 7.7 Neutrophils % 62.4 Lymphocytes % 27.9 Monocytes % 5.8 Eosinophils % 3.2 Basophils % 0.7 - RADIOLOGY Radiology Studies Ordered: Category Date Time Status CHEST PA & LAT [RAD] Stat Radiology 02/25/17 06:36 Ordered Medical Decision Making - Medical Decision Making 02/25/17 06 6:38 Pt seen and examined at bedside Pt found to be AVSS Lungs clear rash at back without purititis Mild pain on palpation to left upper chest wall on palpation Plan -UA -Urine preg -EKG -CXR -toradol -labs 02/25/17 08:48 pending ua results feeling better after toradol labs reviewed. pt will be discharged after ua 02/25/17 09:30 WBC on urine 8 No antibiotics needed. Will discharge *DC/Admit/Observation/Transfer Diagnosis at time of Disposition: Chest pain, musculoskeletal - Discharge Dispostion Disposition: HOME Condition at time of disposition: Stable Admit: No - Referrals Referrals: Phillip Haas MD [Primary Care Provider] - - Patient Instructions Printed Discharge Instructions: DI for Atypical Chest Pain Additional Instructions: Discharge instructions 1. Follow up with your PCP this week and tell him you have been seen here in ER for chest pain 2. You can use ice and alternate with heat to the area to relieve pain as well as use tylenol extra strenght and or mortin alternating 3. Avoid heavy lifting or carrying packages. 4. You had a rash to your back and it is unknown if the new antibiotic Flagyl that was given to you by your [employer] caused this. You can use benadryl if the rash starts to itch. If not avoid taking flagyl and label it an allergy for now until you have testing. UA is neg and you do not need further antiobiotics - Post Discharge Activity
[2017-02-25] MEDS ORDERED: KETOROLAC TROMETHAMINE 60 MG/2 ML VIAL ONE (07:39)
[2017-02-25 08:44] LABS: URINE APPEARANCE CLOUDY; URINE BILIRUBIN NEGATIVE (NEGATIVE); URINE BLOOD NEGATIVE (NEGATIVE); URINE COLOR YELLOW; URINE GLUCOSE (UA) NEGATIVE (NEGATIVE); URINE KETONE NEGATIVE (NEGATIVE); URINE NITRITE NEGATIVE (NEGATIVE); URINE UROBILINOGEN NEGATIVE mg/dL (0.2-1.0)
[2017-02-25 08:45] LABS: URINE PROTEIN 1+ (NEGATIVE)
[2017-02-25 09:09] LABS: URINE BACTERIA RARE /hpf (NONE SEEN); URINE MUCUS FEW; URINE RBC 2 /hpf (0-3); URINE WBC 8 /hpf (3-5)
[2017-02-25 09:51] VITALS: BP 128/87; PULSE 81
[2017-02-25 13:08] LABS: URINE LEUK ESTERASE Negative (NEGATIVE)
--- NOTE | 2017-02-26 11:39 | EKG ---
Test Reason : Blood Pressure : / mmHG Vent. Rate : 091 BPM Atrial Rate : 091 BPM P-R Int : 120 ms QRS Dur : 074 ms QT Int : 378 ms P-R-T Axes : 044 046 043 degrees QTc Int : 464 ms NORMAL SINUS RHYTHM NORMAL ECG WHEN COMPARED WITH ECG OF 27-DEC-2015 07:11, NONSPECIFIC T WAVE ABNORMALITY NO LONGER EVIDENT IN ANTERIOR LEADS Confirmed by YIN MUJICA MD ([id number]) on 02/26/2017 11:38:34 AM Referred By: Confirmed By:YIN MUJICA MD
== END 2017-02-25 09:51 | disposition home or self-care (01) ==
LOC: JER 06:00
PROC: 3E0233Z Introduction of Anti-inflammatory into Muscle, Percutaneous Approach (ICD-10-PCS; principal; 2017-02-25)
DX: R07.89 Other chest pain (principal)
CPT/HCPCS: 36415; 71020-TC; 80053; 81003; 81015; 84703; 85025; 93005; 93010; 99283-25

== ENCOUNTER 2017-04-25 18:21 | Emergency (ER) | payer OTHER ==
[2017-04-25 18:43] VITALS: BP 136/94; PULSE 89; TEMP 98.1; BMI 34.7
--- NOTE | 2017-04-25 19:30 | PDOC ---
History of Present Illness - General Chief Complaint: Chest Pain Stated Complaint: CHEST PAIN Time Seen by Provider: 04/25/17 19:18 - History of Present Illness Initial Comments: 04/25/17 19:24 41 y.o. female with a PMH of Asthma who presents to the ED c/o 1 week h/o chest pain. The pain is B/L parasternal, sharp, non-pleuritic, and radiates to her R arm during movement however the pain is constant and not associated with exertion. Patient denies any associated shortness of breath, cough, lightheadedness or palpitations. Patient states she has been using OTC NSAIDS with minimal relief. Denies any recent trauma, heavy lifting. Patient notes she was evaluated for the pain in our facility one month previous at which time she was told it was likely 2/2 to stress. Patient denies any family cardiac history or previous cardiac evaluation. Patient denies nausea/vomiting, diarrhea/constipation, dysuria/hematuria, fever/ chills. Allergy: Levofloxacin Surgery: Appendectomy PMD: Dr. Haas 04/25/17 20:04 Past History - Past Medical History Allergies/Adverse Reactions: Allergies Allergy/AdvReac Type Severity Reaction Status Date / Time levofloxacin [From Levaquin] Allergy Mild Itching Verified 04/25/17 18:40 PECANS Allergy Hives Uncoded 04/25/17 18:40 WALNUTS Allergy Uncoded 04/25/17 18:40 Home Medications: Ambulatory Orders Methocarbamol [Robaxin -] 500 mg PO TID #21 tablet 04/25/17 Asthma: Yes COPD: No - Surgical History Appendectomy: Yes - Immunization History Immunization Up to Date: No - Suicide/Smoking/Psychosocial Hx Smoking Status: Yes Smoking History: Never smoked Have you smoked in the past 12 months: No Number of Cigarettes Smoked Daily: 0 If you are a former smoker, when did you quit?: 3yrs Information on smoking cessation initiated: No Hx Alcohol Use: No Drug/Substance Use Hx: No Substance Use Type: None Hx Substance Use Treatment: No Review of Systems - Review of Systems Constitutional: No: Chills, Fever Respiratory: No: Shortness of Breath Cardiac (ROS): Yes: Chest Tightness. No: Lightheadedness, Palpitations, Syncope *Physical Exam - Vital Signs Last Vital Signs Temp Pulse Resp BP Pulse Ox 98.1 F 89 16 136/94 100 04/25/17 18:40 02 18:40 02 18:40 04/25/17 18:40 04/25/17 18:40 - Physical Exam Comments: 04/25/17 21:12 GENERAL: Awake, alert, and fully oriented, in no acute distress HEAD: No signs of trauma EYES: PERRLA, EOMI, sclera anicteric, conjunctiva clear ENT: Auricles normal inspection, hearing grossly normal, nares patent, oropharynx clear without exudates NECK: Normal ROM, supple, no lymphadenopathy, JVD, or masses LUNGS: Breath sounds equal, clear to auscultation bilaterally. No wheezes, and no crackles HEART: Regular rate and rhythm, normal S1 and S2, no murmurs, rubs or gallops, non-reproducible chest pain ABDOMEN: Soft, nontender, normoactive bowel sounds. No guarding, no rebound. No masses EXTREMITIES: Normal range of motion, no edema. No clubbing or cyanosis. No cords , erythema, or tenderness BACK: No midline spinal tenderness in cervical/thoracic/lumbar region NEUROLOGICAL: Normal speech, normal gait, normal reflexes and tone SKIN: Warm, Dry, normal turgor, no rashes or lesions noted. 04/25/17 21:12 04/25/17 21:46 Medical Decision Making - Medical Decision Making 04/25/17 20:03 40 y.o. female with chest pain that radiates down her arm with movement. Likely muskoskeletal as no associated dyspnea, lightheadedness, palpitation, . Will obtain CXR to r/o rib fracture and pain control with Robaxan. Reasess. 04/25/17 21:14 EKG shows NSR (HR 93), normal axis, normal intervals, no ST elevations/ depressions - non ischemic EKG. CXR negative for infiltrate/consolidation. Patient's pain symptomatically improved with muscle relaxant. Will d/c patient home with return precautions and instruction to f/u with PCP. I discussed the physical exam findings, ancillary test results and final diagnoses with the patient. I answered all of the patient's questions. The patient was satisfied with the care received and felt comfortable with the discharge plan and treatment plan. The patient will return to the Emergency Department with any new, persistent or worsening symptoms. *DC/Admit/Observation/Transfer Diagnosis at time of Disposition: Chest pain - Discharge Dispostion Disposition: HOME Condition at time of disposition: Good Admit: No - Prescriptions Prescriptions: Methocarbamol [Robaxin -] 500 mg PO TID #21 tablet - Referrals Referrals: Phillip Haas MD [Primary Care Provider] - - Patient Instructions Printed Discharge Instructions: DI for Atypical Chest Pain Additional Instructions: You were evaluated today for chest pain. Your electrocardiogram and chest x- ray showed no concerning findings. We have prescribed a limited muscle relaxant for one week. Please make an appointment with your primary care physician, Dr. Haas, in the next 3-5 days for further evaluation. Return to the Emergency Department for any new/worsening/concerning symptoms. - Post Discharge Activity
--- NOTE | 2017-04-25 19:36 | PDOC ---
Attending Attestation - Resident Resident Name: Lisa Abbott - ED Attending Attestation I have performed the following: I have examined & evaluated the patient, The case was reviewed & discussed with the resident, I agree w/resident's findings & plan - HPI HPI: 04/25/17 21:28 Pt comes with costochondritis x 3 days. No recent viral illness, as far as pt can recall. 04/25/17 21:44 Pt is not a smoker and she is not on OCPs. She is currently on her menses. - Physicial Exam PE: 04/25/17 21:28 Exam shows normal exam; clear lungs. Agree with resident exam - Medical Decision Making 04/25/17 21:29 Pt has normal EKG; CXR is clear. Exam is normal. No recent asthma flare. 04/25/17 21:29 Pt with atypical CP; she will follow with PMD. 04/25/17 21:42 Pt believes that this is all stress related. SHe states that she has a lot of stress at work. 04/25/17 21:44
[2017-04-25] MEDS ORDERED: METHOCARBAMOL 500 MG TABLET PO ONE (19:47)
[2017-04-25] MEDS ORDERED: METHOCARBAMOL 500 MG TABLET ONE (19:51)
--- NOTE | 2017-04-26 13:30 | EKG ---
Test Reason : Blood Pressure : / mmHG Vent. Rate : 093 BPM Atrial Rate : 093 BPM P-R Int : 114 ms QRS Dur : 070 ms QT Int : 358 ms P-R-T Axes : 050 050 047 degrees QTc Int : 445 ms NORMAL SINUS RHYTHM POSSIBLE LEFT ATRIAL ENLARGEMENT BORDERLINE ECG WHEN COMPARED WITH ECG OF 25-FEB-2017 06:12, NO SIGNIFICANT CHANGE WAS FOUND BASELINE ARTIFACT Confirmed by RUBIN BALTAZAR, TETO ([id number]) on 04/26/2017 1:29:49 PM Referred By: Confirmed By:TETO CONKLIN MD
== END 2017-04-25 21:51 | disposition home or self-care (01) ==
LOC: JER 18:21
DX: M94.0 Chondrocostal junction syndrome [Tietze] (principal)
CPT/HCPCS: 71046-TC-FY; 84703; 93005; 93010; 99282-25

== ENCOUNTER 2017-09-10 21:22 | Emergency (ER) | payer OTHER ==
[2017-09-10] MEDS ORDERED: ASPIRIN 81 MG CHEWABLE TABLETS PO ONE (21:31)
--- NOTE | 2017-09-10 21:31 | PDOC ---
Rapid Medical Evaluation Chief Complaint: Chest Pain Time Seen by Provider: 09/10/17 21:24 Medical Evaluation: Allergies Allergy/AdvReac Type Severity Reaction Status Date / Time levofloxacin [From Levaquin] Allergy Mild Itching Verified 05/22/17 08:14 vancomycin Allergy Verified 05/22/17 08:14 PECANS Allergy Hives Uncoded 05/22/17 08:14 WALNUTS Allergy Uncoded 05/22/17 08:14 09/10/17 21:24 c/o left sided chest pain and back pain x 3 days. recent prolonged care ride and patient reports that she sitting for long periods at work. PE; Patient alert ox3. chest nontender, breath sounds clear, S1S2 EKG: NSR Plan; cbc cmp cardiac enzymes chest PA and lateral patient to the ER for further management of care. Discharge Disposition - Diagnosis Chest pain Qualifiers: Chest pain type: unspecified Qualified Code(s): R07.9 - Chest pain, unspecified - Referrals Referrals: Phillip Haas MD [Primary Care Provider] - - Patient Instructions - Post Discharge Activity
[2017-09-10 21:34] VITALS: BP 152/80; PULSE 83; TEMP 98.1; BMI 34.7
--- NOTE | 2017-09-10 22:14 | PDOC ---
History of Present Illness - General History Source: Patient, Old Records Exam Limitations: No Limitations - History of Present Illness Initial Comments: 09/10/17 22:21 The patient is a 41 year old female with a past medical history of asthma who presents to the emergency department with progressively worsening chest pain for 3 days. The patient describes her pain as 10/10 in severity, shooting in nature and without exacerbating or alleviating factors. She reports that her pain starts in her left upper neck and radiates inferiorly to the left side of her chest. She reports that she did not attempt to treat her symptoms at home. She denies a history of smoking. The patient has an IUD placed. <Alcides Wick - Last Filed: 09/10/17 22:21> - General History Source: Patient <KiParag garcia - Last Filed: 09/11/17 00:13> - General Chief Complaint: Chest Pain Stated Complaint: CHEST PAIN, BACK PAIN Time Seen by Provider: 09/10/17 21:24 Past History <Alcides Wick - Last Filed: 09/10/17 22:21> - Past Medical History Asthma: Yes COPD: No DVT: No - Surgical History Appendectomy: Yes - Immunization History Immunization Up to Date: No - Suicide/Smoking/Psychosocial Hx Smoking Status: Yes Smoking History: Never smoked Have you smoked in the past 12 months: No Number of Cigarettes Smoked Daily: 0 If you are a former smoker, when did you quit?: 3yrs Information on smoking cessation initiated: No Hx Alcohol Use: Yes (social) Drug/Substance Use Hx: No Substance Use Type: None Hx Substance Use Treatment: No <Parag Boudreaux - Last Filed: 09/11/17 00:13> - Past Medical History Allergies/Adverse Reactions: Allergies Allergy/AdvReac Type Severity Reaction Status Date / Time levofloxacin [From Levaquin] Allergy Mild Itching Verified 09/10/17 21:34 vancomycin Allergy Verified 09/10/17 21:34 PECANS Allergy Hives Uncoded 09/10/17 21:34 WALNUTS Allergy Uncoded 09/10/17 21:34 Home Medications: Ambulatory Orders Ibuprofen 800 mg PO TID #30 tablet 09/11/17 Methocarbamol [Robaxin -] 500 mg PO TID #30 tablet 09/11/17 Review of Systems - Review of Systems Able to Perform ROS?: Yes Comments:: 09/10/17 22:21 CONSTITUTIONAL: Absent: fever, no chills, no fatigue EYES: Absent: visual changes ENT: Absent: ear pain, no sore throat CARDIOVASCULAR: (+) Chest pain Absent: no palpitations RESPIRATORY: Absent: cough, no SOB GI: Absent: abdominal pain, no nausea, no vomiting, no constipation, no diarrhea GENITOURINARY: Absent: dysuria, no frequency, no hematuria MUSCULOSKELETAL: Absent: back pain, no arthralgia SKIN: Absent: rash <Alcides Wick - Last Filed: 09/10/17 22:21> *Physical Exam - Vital Signs Last Vital Signs Temp Pulse Resp BP Pulse Ox 98.1 F 83 18 152/80 99 09/10/17 21:32 09/10/17 21:32 09/10/17 21:32 09/10/17 21:32 09/10/17 21:32 - Physical Exam Comments: 09/10/17 22:21 GENERAL: Well-appearing, well-nourished. No apparent distress. HEENT: Normocephalic, atraumatic. PERRL, EOM intact. CARDIOVASCULAR: Normal S1, S2. Regular rate and rhythm. PULMONARY: Clear to auscultation bilaterally. ABDOMEN: Soft, non-distended, non-tender. MUSCULOSKELETAL: (+) Normal ROM in all four extremities. No gross deformities. Cervical muscle spasm on left side radiating down to anterior and medial left shoulder SKIN: Warm, dry. No rash NEUROLOGICAL: No focal neurological deficits. <Alcides Wick - Last Filed: 09/10/17 22:21> - Vital Signs Last Vital Signs Temp Pulse Resp BP Pulse Ox 98.1 F 83 18 152/80 99 09/10/17 21:32 09/10/17 21:32 09/10/17 21:32 09/10/17 21:32 09/10/17 21:32 <Parag Boudreaux - Last Filed: 09/11/17 00:13> ED Treatment Course - LABORATORY CBC & Chemistry Diagram: 09/10/17 22:45 09/10/17 22:45 <Parag Boudreaux - Last Filed: 09/11/17 00:13> Medical Decision Making - Medical Decision Making 09/11/17 00:12 Dr. Boudreaux: The scribe's documentation has been prepared under my direction and personally reviewed by me in its entirery. I confirm that the note above accurately reflects all work, treatment, procedures, and medical decision making performed by me. <Parag Boudreaux - Last Filed: 09/11/17 00:13> *DC/Admit/Observation/Transfer - Attestations Scribe Attestion: 09/10/17 22:22 Documentation prepared by Alcides Wick, acting as medical dir for Parag Boudreaux DO. <Alcides Wick - Last Filed: 09/10/17 22:21> - Discharge Dispostion Decision to Admit order: No <Parag Boudreaux - Last Filed: 09/11/17 00:13> Diagnosis at time of Disposition: Chest pain, musculoskeletal Chest pain Qualifiers: Chest pain type: unspecified Qualified Code(s): R07.9 - Chest pain, unspecified - Discharge Dispostion Disposition: HOME Condition at time of disposition: Stable - Prescriptions Prescriptions: Ibuprofen 800 mg PO TID #30 tablet Methocarbamol [Robaxin -] 500 mg PO TID #30 tablet - Referrals Referrals: Phillip Haas MD [Primary Care Provider] - - Patient Instructions Printed Discharge Instructions: DI for Chest Pain, DI for Musculoskeletal Pain Additional Instructions: take medications as directed. Please follow up with your primary care doctor as soon as possible if symptoms persists - Post Discharge Activity Forms/Work/School Notes: Back to Work
[2017-09-10] MEDS ORDERED: KETOROLAC TROMETHAMINE 30 MG/1 ML VIAL IVPUSH ONE (22:15)
[2017-09-10 22:59] LABS: BASO % 0.9 % (0-2.0); EOS % 5.6 % (0-4.5); HEMATOCRIT 37.9 % (32.4-45.2); HEMOGLOBIN 13.2 GM/dL (10.7-15.3); LYMPH % 34.8 % (8-40); MCH 31.9 pg (25.7-33.7); MCHC 34.7 g/dl (32.0-36.0); MEAN CELL VOLUME 91.9 fl (80-96); MEAN PLT VOLUME 7.6 fl (7.5-11.1); MONO % 6.6 % (3.8-10.2); NEUT % 52.1 % (42.8-82.8); PLATELET COUNT 286 K/MM3 (134-434); RBC 4.13 M/mm3 (3.60-5.2); RDW 12.9 % (11.6-15.6); WHITE BLOOD COUNT 10.2 K/mm3 (4.0-10.0)
[2017-09-10] MEDS ORDERED: KETOROLAC TROMETHAMINE 30 MG/1 ML VIAL ONE (23:15)
[2017-09-10 23:30] LABS: INR 0.98 (0.82-1.09); PROTHROMBIN TIME (PATIENT) 11.1 SEC (9.7-13.0)
[2017-09-10 23:31] LABS: ALBUMIN 3.3 g/dl (3.4-5.0); ANION GAP 7 (8-16); BILIRUBIN,TOTAL 0.4 mg/dL (0.2-1.0); BLOOD UREA NITROGEN 15 mg/dL (7-18); CALCIUM 7.9 mg/dL (8.5-10.1); CHLORIDE 109 mmol/L (98-107); CO2 25 mmol/L (21-32); CREATININE 0.8 mg/dL (0.55-1.02); GLUCOSE,RANDOM 90 mg/dL (74-106); MAGNESIUM 2.2 mg/dL (1.8-2.4); POTASSIUM 3.9 mmol/L (3.5-5.1); SGOT/AST 20 U/L (15-37); SGPT/ALT 26 U/L (12-78); SODIUM 141 mmol/L (136-145); TOT PROT 6.4 g/dl (6.4-8.2)
[2017-09-10 23:33] LABS: ALK PHOS 125 U/L (45-117)
[2017-09-11] MEDS ORDERED: ACETAMINOPHEN 325 MG TABLET (FP) PO ONE (00:09)
[2017-09-11] MEDS ORDERED: METHOCARBAMOL 500 MG TABLET PO ONE (00:09)
[2017-09-11] MEDS ORDERED: ACETAMINOPHEN 325 MG TABLET (FP) ONE ×2 (00:17→00:21)
[2017-09-11] MEDS ORDERED: METHOCARBAMOL 500 MG TABLET ONE ×2 (00:17→00:21)
--- NOTE | 2017-09-14 22:08 | EKG ---
Test Reason : Blood Pressure : / mmHG Vent. Rate : 088 BPM Atrial Rate : 088 BPM P-R Int : 114 ms QRS Dur : 074 ms QT Int : 386 ms P-R-T Axes : 063 050 047 degrees QTc Int : 467 ms NORMAL SINUS RHYTHM NORMAL ECG WHEN COMPARED WITH ECG OF 25-APR-2017 18:31, NO SIGNIFICANT CHANGE WAS FOUND Confirmed by GERALDINE CALLES MD ([id number]) on 09/14/2017 10:08:34 PM Referred By: Confirmed By:GERALDINE CALLES MD
== END 2017-09-11 00:37 | disposition home or self-care (01) ==
LOC: JER 21:22
PROC: 3E0233Z Introduction of Anti-inflammatory into Muscle, Percutaneous Approach (ICD-10-PCS; principal; 2017-09-10)
DX: R07.89 Other chest pain (principal); X50.1XXA Overexertion from prolonged static or awkward postures, initial encounter; Y93.89 Activity, other specified; Y92.89 Other specified places as the place of occurrence of the external cause; Y99.8 Other external cause status
CPT/HCPCS: 36415; 71046-TC-FY; 80053; 82550; 82553; 83735; 84484; 84703; 85025; 85379; 85610; 93005; 93010; 99283-25

== ENCOUNTER 2017-10-01 15:44 | Observation (INO) | payer OTHER ==
--- NOTE | 2017-10-01 16:04 | PDOC ---
Rapid Medical Evaluation Chief Complaint: Chest Pain Time Seen by Provider: 10/01/17 16:01 Medical Evaluation: Allergies Allergy/AdvReac Type Severity Reaction Status Date / Time levofloxacin [From Levaquin] Allergy Mild Itching Verified 10/01/17 15:59 vancomycin Allergy Verified 10/01/17 15:59 PECANS Allergy Hives Uncoded 10/01/17 15:59 WALNUTS Allergy Uncoded 10/01/17 15:59 10/01/17 16:01 I have performed a brief-in person evaluation of this patient in triage. The patient presents to the ER c/o: MID CHEST PAIN radiating down to lower abd. 8/10 sharp and dull pain. Denies any n/v/d. Seen at Dr. Connor Haas today/sent here for admission for CP +BRBPR today Pertinent PE findings: L/S ctab I have ordered the following: cbc/cmp/cardiac/ekg/ua/upreg/IV The patient will proceed to the ED for further evaluation.
--- NOTE | 2017-10-01 16:17 | PDOC ---
History of Present Illness - General Chief Complaint: Chest Pain Stated Complaint: CHEST PAIN (PCP SENT) Time Seen by Provider: 10/01/17 16:01 - History of Present Illness Initial Comments: 10/01/17 16:12 41 yo F with h/o asthma, and GERD who p/w chest pain. Patient reports 2 weeks of unremitting, stable, retrrosternal chest pain with radiation to back bewteen shoulder blades. No identifiable triggers or alleviators. Denies postprandial pain. Nml stool habits. Patient denies N/V, F/C, orthopnea, PND, leg pain/swelling, SOB, urinary complaints, diarrhea, constipation, lightheadedness, weakness, sensory changes. PMHx: as noted above. H/o appendectomy. h/o two nml colonoscopies. Seen by cardiology this AM with nml Echo. ROS: as noted SHx: Tobacco cessation 3 years ago. Social Etoh. Denies IVDA. Allergies: Vancomycin-Red man syndrome, Levaquin-Hives PMD: Dr. Haas Past History - Past Medical History Allergies/Adverse Reactions: Allergies Allergy/AdvReac Type Severity Reaction Status Date / Time levofloxacin [From Levaquin] Allergy Mild Itching Verified 10/01/17 15:59 vancomycin Allergy Verified 10/01/17 15:59 PECANS Allergy Hives Uncoded 10/01/17 15:59 WALNUTS Allergy Uncoded 10/01/17 15:59 Home Medications: Ambulatory Orders Cetirizine HCl [Zyrtec -] 10 mg PO DAILY 10/01/17 Montelukast Sodium [Singulair] 10 mg PO DAILY 10/01/17 Asthma: Yes COPD: No DVT: No - Surgical History Appendectomy: Yes - Immunization History Immunization Up to Date: No - Suicide/Smoking/Psychosocial Hx Smoking Status: Yes Smoking History: Never smoked Have you smoked in the past 12 months: No Number of Cigarettes Smoked Daily: 0 If you are a former smoker, when did you quit?: 3yrs Information on smoking cessation initiated: No Hx Alcohol Use: No Drug/Substance Use Hx: No Substance Use Type: None Hx Substance Use Treatment: No Review of Systems - Review of Systems Comments:: 10/01/17 16:14 GENERAL/CONSTITUTIONAL: No fever or chills. No weakness. HEAD, EYES, EARS, NOSE AND THROAT: No change in vision. No ear pain or discharge. No sore throat. CARDIOVASCULAR: + chest pain. No shortness of breath RESPIRATORY: No cough, wheezing, or hemoptysis. GASTROINTESTINAL: No nausea, vomiting, diarrhea or constipation. GENITOURINARY: No dysuria, frequency, or change in urination. MUSCULOSKELETAL: No joint or muscle swelling or pain. No neck or back pain. SKIN: No rash NEUROLOGIC: No headache, vertigo, loss of consciousness, or change in strength/ sensation. ENDOCRINE: No increased thirst. No abnormal weight change HEMATOLOGIC/LYMPHATIC: No anemia, easy bleeding, or history of blood clots. ALLERGIC/IMMUNOLOGIC: No hives or skin allergy. *Physical Exam - Vital Signs Last Vital Signs Temp Pulse Resp BP Pulse Ox 98.5 F 93 H 16 135/73 97 10/01/17 15:59 10/01/17 15:59 10/01/17 15:59 10/01/17 15:59 10/01/17 15:59 - Physical Exam Comments: 10/01/17 16:14 GENERAL: Awake, alert, and fully oriented, in no acute distress HEAD: No signs of trauma, normocephalic, atraumatic EYES: PERRLA, EOMI, sclera anicteric, conjunctiva clear ENT: Hearing grossly normal, nares patent, oropharynx clear without exudates. Moist mucosa NECK: Normal ROM, supple, no lymphadenopathy, JVD, or masses LUNGS: No distress, speaks full sentences, clear to auscultation bilaterally HEART: Regular rate and rhythm, normal S1 and S2, no murmurs, rubs or gallops, peripheral pulses normal and equal bilaterally. ABDOMEN:+ RUQ and epigastric ttp. normoactive bowel sounds. No guarding, no rebound. No masses EXTREMITIES : Normal inspection, Normal range of motion, no edema. No clubbing or cyanosis. SKIN: Warm, Dry, normal turgor, no rashes or lesions noted ED Treatment Course - LABORATORY CBC & Chemistry Diagram: 10/01/17 16:09 10/01/17 16:09 Medical Decision Making - Medical Decision Making 10/01/17 16:56 41 yo F with h/o asthma, and GERD who p/w chest pain. AF, VSS, A&Ox3. ACS/AR r/ o. PERC NEG PE. R/o PNA. + Epigastric ttp. Possible biliary disease vs. dyspepsia 2/2 esophagitis/gastritis. Low suspicion pancreatitis, AAA, PUD, borhaave. Ed Course: CBC, CMP, Cardiac Pr. EKG: NSR with normal interval and normal axis. Absent REID, STD, or TWI. 10/01/17 18:28 CBC,CMP: Unremarkable CK: 201 UA: Neg 10/01/17 18:38 Patient admitted to tele/obs. Dr. cherry Consult Dr. Lorenz *DC/Admit/Observation/Transfer Diagnosis at time of Disposition: Chest pain at rest - Discharge Dispostion Decision to Admit order: Yes - Referrals - Patient Instructions - Post Discharge Activity
--- NOTE | 2017-10-01 16:19 | PDOC ---
Attending Attestation - HPI HPI: 10/01/17 17:38 The patient is a 41-year-old female with a past medical history of asthma and fibroids, sent to the emergency department by Dr. Haas to r/o [facility]. The patient presents with constant pain to the anterior chest wall that radiated to the R. shoulder, back and diffuses across the abdomen, aggravated with movement , worse after eating, with the sensation of someone is sitting on my chest in the morning, without relief. Patient states following up with ball thread machine tender Dr. Jones a week and a half ago, who reviewed the echo done 2 days prior to the appointment, the patient states the results were unremarkable. The patient states she was following up with her PCP today, where she had an EKG done, states she was sent in s/p to r/o [facility]. Patient reports following up with her GI doctor couple of months prior with lower abdominal pain states she was informed of a concern, which she doesnt remember, states she didnt follow up. Denies fever, chills, cough or a headache. Denies shortness of breath, palpitation or orthopnea. Denies nausea, vomiting, hematemesis or hemoptysis. Denies diarrhea, constipation, melena or hematochezia. Denies vertigo or dizziness. Denies the use of anticoagulants. Denies calf swelling. Allergies: Vancomycin and Levaquin. Walnuts and pecans Social history: Former smoker. Denies the use of alcohol of recreational drugs. Surgical history: appendectomy PCP: Dr. Haas. - Physicial Exam PE: 10/01/17 17:11 GENERAL: Awake, alert, and fully oriented, in no acute distress HEAD: No signs of trauma EYES: PERRLA, EOMI, sclera anicteric, conjunctiva clear ENT: Auricles normal inspection, hearing grossly normal, nares patent, oropharynx clear without exudates. Moist mucosa NECK: Normal ROM, supple, no lymphadenopathy, JVD, or masses LUNGS: Breath sounds equal, clear to auscultation bilaterally. No wheezes, and no crackles HEART: Regular rate and rhythm, normal S1 and S2, no murmurs, rubs or gallops ABDOMEN: (+) Epigastric and RUQ tenderness that is reproducible. Soft, normoactive bowel sounds. No guarding, no rebound. No masses EXTREMITIES: No calf tenderness or lower extremity edema. Normal range of motion , no edema. No clubbing or cyanosis. No cords, erythema, or tenderness NEUROLOGICAL: Cranial nerves II through XII grossly intact. Normal speech, normal gait SKIN: Warm, Dry, normal turgor, no rashes or lesions noted. - Medical Decision Making 10/01/17 17:11 Documentation prepared by Yasmin Bee, acting as medical malpractice paralegal for Aure Samuel DO. <Yasmin Bee - Last Filed: 10/01/17 17:38> - Resident Resident Name: Johnnie Kramer - ED Attending Attestation I have performed the following: I have examined & evaluated the patient, The case was reviewed & discussed with the resident, I agree w/resident's findings & plan, Exceptions are as noted - Medical Decision Making 10/01/17 16:18 I, Dr. Aure Samuel, , attest that this document has been prepared under my direction and personally reviewed by me in its entirety. I further attest, that it accurately reflects all work, treatment, procedures and medical decision -making performed by me. 10/01/17 16:47 a/p: 41yo female with chest pressure x 2 weeks -seen by cards as an outpt with a normal echo -RUQ pain, worse after eating -chest pressure -RUQ pain radiates to shoulder - concern for biliary colic vs acs -will send labs, ekg, cxr, trop, RUQ u/s -will medicate and re-eval 10/01/17 19:[address] in obs for further eval of cp <Aure Samuel - Last Filed: 10/01/17 19:12>
[2017-10-01 16:38] LABS: BASO % 0.6 % (0-2.0); EOS % 3.2 % (0-4.5); HEMATOCRIT 38.5 % (32.4-45.2); HEMOGLOBIN 13.2 GM/dL (10.7-15.3); LYMPH % 31.6 % (8-40); MCH 31.6 pg (25.7-33.7); MCHC 34.3 g/dl (32.0-36.0); MEAN PLT VOLUME 7.9 fl (7.5-11.1); MONO % 3.8 % (3.8-10.2); NEUT % 60.8 % (42.8-82.8); PLATELET COUNT 307 K/MM3 (134-434); RBC 4.18 M/mm3 (3.60-5.2); RDW 13.1 % (11.6-15.6); WHITE BLOOD COUNT 8.3 K/mm3 (4.0-10.0)
[2017-10-01 16:41] LABS: URINE APPEARANCE CLEAR; URINE BILIRUBIN NEGATIVE (<2.0 mg/dL); URINE COLOR LTYELLOW; URINE GLUCOSE (UA) NEGATIVE (NEGATIVE); URINE KETONE NEGATIVE (NEGATIVE); URINE LEUK ESTERASE NEGATIVE (NEGATIVE); URINE NITRITE NEGATIVE (NEGATIVE); URINE PROTEIN NEGATIVE (NEGATIVE); URINE UROBILINOGEN NEGATIVE mg/dL (0.2-1.0)
[2017-10-01 16:45] LABS: HCG,QUALITATIVE URINE NEGATIVE
[2017-10-01] MEDS ORDERED: FAMOTIDINE 20 MG/50 ML IVPB 20 MG/50 ML MG IVPB ONE ×2 (16:49→17:14)
[2017-10-01] MEDS ORDERED: SODIUM CHLORIDE 0.9% 1000 ML INFUS.BAG IV ONE (16:49)
[2017-10-01] MEDS ORDERED: ONDANSETRON 4 MG/2 ML VIAL IVPUSH ONE (16:49)
[2017-10-01] MEDS ORDERED: ACETAMINOPHEN 1000 MG/100 ML VIAL (NON FORMULARY) IVPB ONE (16:49)
[2017-10-01 17:03] LABS: ALBUMIN 3.7 g/dl (3.4-5.0); ALK PHOS 101 U/L (45-117); ANION GAP 10 (8-16); BILIRUBIN,TOTAL 0.7 mg/dL (0.2-1.0); BLOOD UREA NITROGEN 9 mg/dL (7-18); CHLORIDE 108 mmol/L (98-107); CO2 24 mmol/L (21-32); CREATININE 0.8 mg/dL (0.55-1.02); GLUCOSE,RANDOM 104 mg/dL (74-106); POTASSIUM 3.7 mmol/L (3.5-5.1); SGOT/AST 21 U/L (15-37); SGPT/ALT 26 U/L (12-78); SODIUM 142 mmol/L (136-145); TOT PROT 6.8 g/dl (6.4-8.2)
[2017-10-01] MEDS ORDERED: ACETAMINOPHEN INJECTION 100 ML IVPB ONE (17:13)
[2017-10-01] MEDS ORDERED: ONDANSETRON 4 MG/2 ML VIAL ONE (17:14)
--- NOTE | 2017-10-01 19:48 | HP ---
CHIEF COMPLAINT: Chest Pain at Rest PCP: Dr. Haas HISTORY OF PRESENT ILLNESS: 41 y/o woman with a PMH of Asthma and GERD. Who presents to the ED with chest pain at rest x 2 weeks. Patient describes the chest pain as sharp from midsternal radiating to her upper back. Patient reports seeing her PCP was treated with muscle relaxants, motrin and PPI with some relief. Patient also reports having epigastric pain worse after eating meals. Patient reports having a poor diet, coffee, and spicy foods. Patient reports having dyspareunia and seeing her JUNIOR RECRUITER recently- small fibroids. Patient denies fever, chills, cough, SOB, dizziness, palpitations, N/V/D, constipation, dysuria. ER course was notable for: (1) Trop < 0.02 (2) Abdominal US- no obvious interval change, no evidence of acute cholecystitis (3) EKG- NSR with no ST or TWI Recent Travel: None PAST MEDICAL HISTORY: See HPI PAST SURGICAL HISTORY: Social History: Smoking: Former Alcohol: None Drugs: None Family History: Father- HF Allergies levofloxacin [From Levaquin] Allergy (Mild, Verified 10/01/17 15:59) Itching itching at IV site and redness noted on arm vancomycin Allergy (Verified 10/01/17 15:59) PECANS Allergy (Uncoded 10/01/17 15:59) Hives WALNUTS Allergy (Uncoded 10/01/17 15:59) HOME MEDICATIONS: Home Medications Medication Instructions Recorded Cetirizine HCl [Zyrtec -] 10 mg PO DAILY 10/01/17 Montelukast Sodium [Singulair] 10 mg PO DAILY 10/01/17 REVIEW OF SYSTEMS CONSTITUTIONAL: Absent: fever, chills, diaphoresis, generalized weakness, malaise, loss of appetite, weight change HEENT: Absent: rhinorrhea, nasal congestion, throat pain, throat swelling, difficulty swallowing, mouth swelling, ear pain, eye pain, visual changes CARDIOVASCULAR: chest pain, Absent: syncope, palpitations, irregular heart rate, lightheadedness, peripheral edema RESPIRATORY: Absent: cough, shortness of breath, dyspnea with exertion, orthopnea, wheezing, stridor, hemoptysis GASTROINTESTINAL: abdominal pain Absent: abdominal distension, nausea, vomiting, diarrhea, constipation, melena, hematochezia GENITOURINARY: Absent: dysuria, frequency, urgency, hesitancy, hematuria, flank pain, genital pain MUSCULOSKELETAL: Absent: myalgia, arthralgia, joint swelling, back pain, neck pain SKIN: Absent: rash, itching, pallor HEMATOLOGIC/IMMUNOLOGIC: Absent: easy bleeding, easy bruising, lymphadenopathy, frequent infections ENDOCRINE: Absent: unexplained weight gain, unexplained weight loss, heat intolerance, cold intolerance NEUROLOGIC: Absent: headache, focal weakness or paresthesias, dizziness, unsteady gait, seizure, mental status changes, bladder or bowel incontinence PSYCHIATRIC: Absent: anxiety, depression, suicidal or homicidal ideation, hallucinations. PHYSICAL EXAMINATION Vital Signs - 24 hr 10/01/17 15:59 Temperature 98.5 F Pulse Rate 93 H Respiratory 16 Rate Blood Pressure 135/73 O2 Sat by Pulse 97 Oximetry (%) GENERAL: Awake, alert, and fully oriented, in no acute distress. HEAD: Normal with no signs of trauma. EYES: Pupils equal, round and reactive to light, extraocular movements intact, sclera anicteric, conjunctiva clear. No lid lag. EARS, NOSE, THROAT: Ears normal, nares patent, oropharynx clear without exudates. Moist mucous membranes. NECK: Normal range of motion, supple without lymphadenopathy, JVD, or masses. LUNGS: Breath sounds equal, clear to auscultation bilaterally. No wheezes, and no crackles. No accessory muscle use. HEART: Regular rate and rhythm, normal S1 and S2 without murmur, rub or gallop. CP non-reproducible ABDOMEN: Soft, epigastric tenderness, not distended, normoactive bowel sounds, no guarding, no rebound, no masses. No hepatomegaly or splenomegaly. MUSCULOSKELETAL: Normal range of motion at all joints. No bony deformities or tenderness. No CVA tenderness. UPPER EXTREMITIES: 2+ pulses, warm, well-perfused. No cyanosis. No clubbing. No peripheral edema. LOWER EXTREMITIES: 2+ pulses, warm, well-perfused. No calf tenderness. No peripheral edema. NEUROLOGICAL: Cranial nerves II-XII intact. Normal speech. Gait not observed. PSYCHIATRIC: Cooperative. Good eye contact. Appropriate mood and affect. SKIN: Warm, dry, normal turgor, no rashes or lesions noted, normal capillary refill. Laboratory Results - last 24 hr 10/01/17 10/01/17 10/01/17 16:04 16:05 16:09 WBC 8.3 RBC 4.18 Hgb 13.2 Hct 38.5 MCV 92.0 MCH 31.6 MCHC 34.3 RDW 13.1 Plt Count 307 MPV 7.9 Absolute Neuts (auto) 5.0 Neutrophils % 60.8 Lymphocytes % 31.6 Monocytes % 3.8 Eosinophils % 3.2 Basophils % 0.6 Nucleated RBC % 0 Sodium Potassium Chloride Carbon Dioxide Anion Gap BUN Creatinine Creat Clearance w eGFR Random Glucose Calcium Total Bilirubin AST ALT Alkaline Phosphatase Creatine Kinase 219 H Creatine Kinase Index 1.0 CK-MB (CK-2) 2.30 Troponin I < 0.02 Total Protein Albumin Urine Color Ltyellow Urine Appearance Clear Urine pH 6.0 Ur Specific [place] 1.013 Urine Protein Negative Urine Glucose (UA) Negative Urine Ketones Negative Urine Blood Negative Urine Nitrite Negative Urine Bilirubin Negative Urine Urobilinogen Negative Ur Leukocyte Esterase Negative Urine HCG, Qual Negative 10/01/17 16:09 WBC RBC Hgb Hct MCV MCH MCHC RDW Plt Count MPV Absolute Neuts (auto) Neutrophils % Lymphocytes % Monocytes % Eosinophils % Basophils % Nucleated RBC % Sodium 142 Potassium 3.7 Chloride 108 H Carbon Dioxide 24 Anion Gap 10 BUN 9 Creatinine 0.8 Creat Clearance w eGFR > 60 Random Glucose 104 Calcium 8.0 L Total Bilirubin 0.7 AST 21 ALT 26 Alkaline Phosphatase 101 D Creatine Kinase Creatine Kinase Index CK-MB (CK-2) Troponin I Total Protein 6.8 Albumin 3.7 Urine Color Urine Appearance Urine pH Ur Specific [place] Urine Protein Urine Glucose (UA) Urine Ketones Urine Blood Urine Nitrite Urine Bilirubin Urine Urobilinogen Ur Leukocyte Esterase Urine HCG, Qual ASSESSMENT/PLAN: This is a 41 y/o woman Placed on Tele Observation for Chest Pain r/o ACS, Epigastric Pain. Place on Tele Observation Chest Pain- r/o ACS vs Gastritis Cardiac Monitoring Serial Enzymes Echo Stress test Patient reports increase pain after meals, with poor diet Appreciate GI consult PPI Clear Liquid Diet CBC, BMP in am Problem List - Problem (1) Chest pain at rest Code(s): R07.9 - CHEST PAIN, UNSPECIFIED (2) Abdominal pain Code(s): R10.9 - UNSPECIFIED ABDOMINAL PAIN Qualifiers: Abdominal location: periumbilical Qualified Code(s): R10.33 - Periumbilical pain Visit type - Emergency Visit Emergency Visit: Yes ED Registration Date: 10/01/17 Care time: The patient presented to the Emergency Department on the above date and was hospitalized for further evaluation of their emergent condition. - New Patient This patient is new to me today: Yes Date on this admission: 10/02/17 - Critical Care Critical Care patient: No Hospitalist Screening - Colonoscopy Questionnaire Colonoscopy Questionnaire: Colonoscopy Questionnaire - Patient: 50 - 75 years old and never had a screening colonoscopy: No History of colon or rectal polyps, or CA: No History of IBD, Crohn's disease or UC: No History of abdominal radiation therapy as a child: No - Relative: 1 with colon or rectal CA, or polyps at age 60 or younger: No Colon or rectal CA diagnosed at age 45 or younger: No Multiple relatives with colon or rectal CA: No - Outcome: Screening Result: Negative Screen
[2017-10-01] MEDS ORDERED: MONTELUKAST NA 10 MG TABLET PO SCH (22:00)
[2017-10-02 00:20] VITALS: BMI 37.1
[2017-10-02] MEDS ORDERED: ACETAMINOPHEN 1000 MG/100 ML VIAL (NON FORMULARY) IVPB ONE (01:39)
[2017-10-02 06:30] LABS: BASO % 0.8 % (0-2.0); EOS % 4.9 % (0-4.5); HEMATOCRIT 37.2 % (32.4-45.2); LYMPH % 37.3 % (8-40); MCH 32.1 pg (25.7-33.7); MCHC 34.9 g/dl (32.0-36.0); MEAN CELL VOLUME 92.1 fl (80-96); MEAN PLT VOLUME 7.7 fl (7.5-11.1); MONO % 6.5 % (3.8-10.2); NEUT % 50.5 % (42.8-82.8); PLATELET COUNT 238 K/MM3 (134-434); RBC 4.04 M/mm3 (3.60-5.2); RDW 13.3 % (11.6-15.6)
[2017-10-02 07:04] LABS: ANION GAP 9 (8-16); BLOOD UREA NITROGEN 10 mg/dL (7-18); CHLORIDE 108 mmol/L (98-107); CO2 25 mmol/L (21-32); GLUCOSE,RANDOM 79 mg/dL (74-106); MAGNESIUM 2.3 mg/dL (1.8-2.4); POTASSIUM 3.9 mmol/L (3.5-5.1); SODIUM 142 mmol/L (136-145)
[2017-10-02 07:05] LABS: CREATININE 0.7 mg/dL (0.55-1.02); PHOSPHOROUS 2.6 mg/dL (2.5-4.9)
[2017-10-02 07:30] VITALS: TEMP 98
--- NOTE | 2017-10-02 08:55 | EKG ---
Test Reason : Blood Pressure : / mmHG Vent. Rate : 092 BPM Atrial Rate : 092 BPM P-R Int : 114 ms QRS Dur : 076 ms QT Int : 370 ms P-R-T Axes : 055 046 044 degrees QTc Int : 457 ms NORMAL SINUS RHYTHM NORMAL ECG WHEN COMPARED WITH ECG OF 10-SEP-2017 21:31, NO SIGNIFICANT CHANGE WAS FOUND Confirmed by ROXANA RO MD ([id number]) on 10/02/2017 8:54:41 AM Referred By: Confirmed By:ROXANA RO MD
--- NOTE | 2017-10-02 09:59 | CON.GI ---
Consult Consult Specialty:: GI: For Dr. Allen Referred by:: Dr. Haas Reason for Consultation:: Rectal bleeding - History of Present Illness Chief Complaint: "I had some rectal bleeding yesterday and have been having pain in my back and chest for 1 week" History of Present Illness: 41F admitted for evaluation of chest pain and back pain. she describes the pain as on the left side of her chest back, which is band like an radiates to the lateral aspect of her left chest. There is no associated nausea, dysphagia/ odynophagia. She described self limited BRBPR yesterday. There was no abdominal pain. She states having had two colonoscopies about 4 years ago that were normal aside from hemorrhoids. She has been constipated of late. She has been on "ibuprofen, omeprazole and muscle relaxant" the last week as part of treatment for her shoulder and chest pain. She had an abdominal US that was unrevealing aside from fatty liver. There has been no melena. There has been no active rectal bleeding currently. There is no family history of colorectal cancer or other GI malignancy. - History Source History Provided By: Patient, Medical Record - Past Medical History Pulmonary: Yes: Asthma ...LMP: 06/21/12 ...: No - Past Surgical History Additional Surgical History: Bowel surgery in ? 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[employer] Place of : [facility] History of Recent Travel: No Home Medications - Allergies Allergies/Adverse Reactions: Allergies Allergy/AdvReac Type Severity Reaction Status Date / Time levofloxacin [From Levaquin] Allergy Mild Itching Verified 10/01/17 15:59 vancomycin Allergy Verified 10/01/17 15:59 PECANS Allergy Hives Uncoded 10/01/17 15:59 WALNUTS Allergy Uncoded 10/01/17 15:59 - Home Medications Home Medications: Ambulatory Orders Cetirizine HCl [Zyrtec -] 10 mg PO DAILY 10/01/17 Montelukast Sodium [Singulair] 10 mg PO DAILY 10/01/17 Family Disease History - Family Disease History Family Disease History: Other: Father (Alive: CHF), Mother (Alive: cervical ca, hyperlipidemia, HTN), Sister (1, from opiate overdose), Son (2, healthy), Daughter (1, healthy) Other Family History: No family history of colorectal cancer or other GI malignancy Review of Systems - Review of Systems Constitutional: denies: Chills HENT: denies: Difficult Swallowing Cardiovascular: reports: Chest Pain Respiratory: reports: SOB. denies: Cough Gastrointestinal: reports: Abdominal Pain, Constipation, Rectal Bleeding. denies: Melena, Vomiting Musculoskeletal: reports: Back Pain, Muscle Pain Physical Exam-GI Vital Signs: Vital Signs Temperature 98.0 F 10/02/17 06:00 Pulse Rate 71 10/02/17 06:00 Respiratory Rate 20 10/02/17 06:00 Blood Pressure 101/61 10/02/17 06:00 O2 Sat by Pulse Oximetry (%) 98 10/01/17 21:20 Constitutional: Yes: Calm Eyes: No: Sclera Icterus Cardiovascular: Yes: Regular Rate and Rhythm Respiratory: Yes: CTA Bilaterally Gastrointestinal Inspection: No: Distention ...Auscultate: Yes: Normoactive Bowel Sounds ...Palpate: No: Tenderness ...Percussion: No: Tympanitic ...Rectal Exam: Yes: Other (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 Morrow has a number of complaints including rectal bleeding yesterday. She is guaiac negative on exam and there are no focal findings on my exam today. Suepect that her bright red rectal bleeding was secondary to hemorrhoidal irritation precipitated by constipation which in turn may have been precipitated by recent NSAID use. Advise: MiraLAX 17g once daily If abdominal pain CT scan of the abdomen and pelvis with PO contrast She has fatty liver: advised weight loss through exercise and meaningful dietary changes Otherwise, she can follow-up with Dr. Allen as an outpatient Recall as needed Code(s): K62.5 - HEMORRHAGE OF ANUS AND RECTUM
[2017-10-02] MEDS ORDERED: FAMOTIDINE 20 MG/50 ML IVPB 20 MG/50 ML MG IVPB SCH (10:00)
[2017-10-02] MEDS ORDERED: ASPIRIN 81 MG CHEWABLE TABLETS PO SCH (10:00)
[2017-10-02] MEDS ORDERED: POLYETHYLENE GLYCOL 3350 119 GM BTL PO SCH (10:30)
--- NOTE | 2017-10-02 10:45 | PN ---
Progress Note, Physician Chief Complaint: patient seen and examined says she her chest pressure better today its intermittent no abdominal pain says last night was not able to sleep bc of the the chest pressure - Current Medication List Current Medications: Active Medications Aspirin (Asa -) 81 mg PO DAILY [facility] Last Admin: 10/02/17 10:35 Dose: 81 mg Famotidine/Sodium Chloride (Pepcid 20 Mg Premixed Ivpb -) 20 mg in 50 mls @ 100 mls/hr IVPB BID [facility] Last Admin: 10/02/17 10:36 Dose: 100 mls/hr Montelukast Sodium (Singulair -) 10 mg PO HS [facility] Last Admin: 10/01/17 22:51 Dose: 10 mg Polyethylene Glycol (Miralax (For Daily Use) -) 17 gm PO DAILY [facility] Last Admin: 10/02/17 10:36 Dose: 17 gm - Objective Vital Signs: Vital Signs Temperature 98.0 F 10/02/17 06:00 Pulse Rate 71 10/02/17 06:00 Respiratory Rate 20 10/02/17 06:00 Blood Pressure 101/61 10/02/17 06:00 O2 Sat by Pulse Oximetry (%) 98 10/01/17 21:20 Constitutional: Yes: Calm Cardiovascular: Yes: Regular Rate and Rhythm, S1, S2 Respiratory: Yes: CTA Bilaterally Gastrointestinal: Yes: Normal Bowel Sounds, Soft Edema: No Neurological: Yes: Alert, Oriented Labs: CBC, BMP 10/02/17 05:30 10/02/17 05:30 Problem List - Problems (1) Chest pain at rest Assessment/Plan: echo -getting it at beside right now stress test CE 3rd set pending, two sets negative on aspirin lipid profile pending cardiology eval- pending Code(s): R07.9 - CHEST PAIN, UNSPECIFIED (2) Rectal bleeding Assessment/Plan: miralax appreciate gi consult most likely due to constipation possible hemorrhoids h/h stable Code(s): K62.5 - HEMORRHAGE OF ANUS AND RECTUM
--- NOTE | 2017-10-02 11:54 | ECHO ---
Name: GUPTA, KATINA Exam:Adult Echocardiogram Study Date: 10/02/2017 09:39 AM Reason For Study: LV Function Height: 62 in Weight: 203 lb BSA: 1.9 m2 MMode/2D Measurements & Calculations IVSd: 1.1 cm LVPWs: 1.2 cm LVIDd: 3.6 cm LVIDs: 2.0 cm LVPWd: 0.93 cm EDV(Teich): 54.1 ml LVOT diam: 2.8 cm ESV(Teich): 12.7 ml Doppler Measurements & Calculations MV E max dionna: 80.9 cm/sec Med Peak E' Dionna: 11.2 cm/sec MV A max dionna: 64.2 cm/sec Med E/e': 7.2 MV E/A: 1.3 Lat Peak E' Dionna: 18.3 cm/sec MV dec time: 0.23 sec Lat E/e': 4.4 Left Ventricle Left ventricular systolic function is normal. Right Ventricle The right ventricle is normal in size and function. Atria Normal left and right atrial size and function. Mitral Valve The mitral valve is normal in structure and function. There is no mitral valve stenosis. There is no mitral regurgitation noted. Tricuspid Valve The tricuspid valve is normal in structure and function. There is mild tricuspid regurgitation. Aortic Valve The aortic valve opens well. No hemodynamically significant valvular aortic stenosis. Pulmonic Valve The pulmonic valve is not well seen, but is grossly normal. There is no pulmonic valvular stenosis. M ild pulmonic valvular regurgitation. Great Vessels The aortic root is normal size. Pericardium/Pleura There is no pericardial effusion. Interpretation Summary Left ventricular systolic function is normal. The right ventricle is normal in size and function. There is mild tricuspid regurgitation. Mild pulmonic valvular regurgitation. There is no pericardial effusion. MD Faheem Calvillo 10/02/2017 11:54 AM
[2017-10-02 12:09] LABS: CHOLESTEROL 183 mg/dL (50-200); TRIGLYCERIDES 158 mg/dL (35-160)
[2017-10-02 12:11] LABS: HDL CHOLESTEROL 38 mg/dL (40-60)
--- NOTE | 2017-10-02 12:46 | CON.CARD ---
Consult Consult Specialty:: cardiology Referred by:: Itzel Reason for Consultation:: Chest pain - History of Present Illness Chief Complaint: Chest pain History of Present Illness: The patient is a 41-year-old female with a history of mild asthma, GERD, now admitted with chest pains. The patient stated that she was at rest. She began experiencing retrosternal and epigastric pressure and tightness. Symptoms radiated to her back. Symptoms are similar to her GERD symptoms. The patient reports no exertional symptoms. She just completed the stress ECG. She had no symptoms on the treadmill. She has good exercise tolerance. Both rest and stress ECG is warm were normal. - History Source History Provided By: Patient Limitations to Obtaining History: No Limitations - Past Medical History Pulmonary: Yes: Asthma ...LMP: 06/21/12 ...: No - Past Surgical History Additional Surgical History: Bowel surgery in ? 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 Travel: No Home Medications - Allergies Allergies/Adverse Reactions: Allergies Allergy/AdvReac Type Severity Reaction Status Date / Time levofloxacin [From Levaquin] Allergy Mild Itching Verified 10/01/17 15:59 vancomycin Allergy Verified 10/01/17 15:59 PECANS Allergy Hives Uncoded 10/01/17 15:59 WALNUTS Allergy Uncoded 10/01/17 15:59 - Home Medications Home Medications: Ambulatory Orders Cetirizine HCl [Zyrtec -] 10 mg PO DAILY 10/01/17 Montelukast Sodium [Singulair] 10 mg PO DAILY 10/01/17 Family Disease History - Family Disease History Family Disease History: Other: Father (Alive: CHF), Mother (Alive: cervical ca, hyperlipidemia, HTN), Sister (1, from opiate overdose), Son (2, healthy), Daughter (1, healthy) Other Family History: No family history of colorectal cancer or other GI malignancy Review of Systems - Review of Systems Constitutional: reports: No Symptoms Eyes: reports: No Symptoms HENT: reports: No Symptoms Neck: reports: No Symptoms Cardiovascular: reports: Chest Pain Respiratory: reports: No Symptoms Gastrointestinal: reports: Abdominal Pain Genitourinary: reports: No Symptoms Breasts: reports: No Symptoms Reported Musculoskeletal: reports: No Symptoms Integumentary: reports: No Symptoms Neurological: reports: No Symptoms Endocrine: reports: No Symptoms Hematology/Lymphatic: reports: No Symptoms Vital Signs: Vital Signs Temperature 98.0 F 10/02/17 06:00 Pulse Rate 71 10/02/17 06:00 Respiratory Rate 20 10/02/17 06:00 Blood Pressure 101/61 10/02/17 06:00 O2 Sat by Pulse Oximetry (%) 98 10/01/17 21:20 Constitutional: Yes: Well Nourished, No Distress, Calm Eyes: Yes: WNL, Conjunctiva Clear, EOM Intact HENT: Yes: WNL, Atraumatic, Normocephalic Neck: Yes: WNL, Supple, Trachea Midline Respiratory: Yes: WNL, Regular, CTA Bilaterally Gastrointestinal: Yes: WNL, Normal Bowel Sounds, Soft Renal/: Yes: WNL Cardiovascular: Yes: WNL, Regular Rate and Rhythm JVD: No Carotid Bruit: No PMI: Non-Displaced Heart Sounds: Yes: S1, S2 Musculoskeletal: Yes: WNL Extremities: Yes: WNL Edema: No Peripheral Pulses WNL: Yes Peripheral Pulses: 2+ Left Carotid, 2+ Right Carotid, 2+ Left Femoral, 2+ Right Femoral, 2+ Left Popliteal, 2+ Right Popliteal, 2+ Left Doralis Pedis, 2+ Right Dorsalis Pedis Integumentary: Yes: WNL ...Motor Strength: WNL Psychiatric: Yes: WNL - Other Data Labs, Other Data: CBC, BMP 10/02/17 05:30 10/02/17 05:30 Troponin, BNP 10/01/17 10/01/17 10/02/17 16:05 21:30 11:15 Troponin I < 0.02 < 0.02 < 0.02 Troponin, BNP 10/01/17 10/01/17 10/02/17 16:05 21:30 11:15 Troponin I < 0.02 < 0.02 < 0.02 Assessment/Plan 41-year-old female presenting with epigastric/chest pains. Currently comfortable and symptom free. The patient had normal stress ECG earlier today. She had no symptoms on the treadmill. Resting ECG showed normal sinus rhythm, no ST-T changes. There is no need for further cardiac workup at this point. There is no need for cardiac monitoring. I believe the patient is stable for discharge. Please do not hesitate to call us PRN.
--- NOTE | 2017-10-02 13:25 | TRE ---
Protocol Name : FRANKI Max Work Load (METS*10) : 101 Time In Exercise Phase : 00:08:00 Max. Systolic BP : 182 mmHg Max Diastolic BP : 84 mmHg Max Heart Rate : 166 BPM Max Predicted Heart Rate : 178 BPM Attending Physician : DR. RO Reason For Termination : Target Heart Rate Achieved Reason for Test : CHEST PAIN,BACK PAIN,STOMACH PAIN Stress Protocol : FRANKI Rest HR : 97 BPM PeakEx METs : 10.1 METS Recovery ECG Response (OLD) : Diagnosis : 1. 8 Minutes Standard Franki Protocol completed with no symptoms. 2. Peak heart rate = 166bpm, 93% of age predicted maximum heart rate. 3. Resting BP: 118/82 dilip to a peak of 182/84, appropriate response for 10 METS. 4. The baseline EXG showed NSR at 88bpm, there were no significant ST changes and no arrhythmias during exercise or recovery. CONCLCUSION : Negative stress test. Normal BP response to exercise Normal HR response to exercise Confirmed by ROXANA RO MD ([id number]) on 10/02/2017 1:24:37 PM
--- NOTE | 2017-10-02 14:15 | DS ---
Physical Examination Vital Signs: Vital Signs Temperature 98.0 F 10/02/17 06:00 Pulse Rate 71 10/02/17 06:00 Respiratory Rate 20 10/02/17 06:00 Blood Pressure 101/61 10/02/17 06:00 O2 Sat by Pulse Oximetry (%) 98 10/01/17 21:20 Constitutional: Yes: No Distress Eyes: Yes: WNL HENT: Yes: WNL Neck: Yes: WNL Cardiovascular: Yes: WNL Respiratory: Yes: WNL Gastrointestinal: Yes: WNL Renal/: Yes: WNL Musculoskeletal: Yes: WNL Extremities: Yes: WNL Edema: No Peripheral Pulses WNL: Yes Integumentary: Yes: WNL Wound/Incision: Yes: Clean/Dry Neurological: Yes: WNL ...Motor Strength: WNL Psychiatric: Yes: WNL Labs: CBC, BMP 10/02/17 05:30 10/02/17 05:30 Discharge Summary Reason For Visit: CHEST PAIN AT REST Current Active Problems Chest pain at rest (Acute) Rectal bleeding (Acute) Procedures: Principal: STRESS TEST Hospital Course: STRESS TEST ECHO DONE NO ACUTE CHANEGS MEDICALLY CLEARED FOR DISCHARGE - Instructions Diet, Activity, Other Instructions: SEE DR HAAS 1-2 WEEKS Referrals: Ellis Allen MD [Staff Physician] - Phillip Haas MD [Primary Care Provider] - Disposition: HOME - Home Medications Comprehensive Discharge Medication List: Ambulatory Orders Cetirizine HCl [Zyrtec -] 10 mg PO DAILY 10/01/17 Montelukast Sodium [Singulair] 10 mg PO DAILY 10/01/17
[2017-10-02 14:21] VITALS: BP 111/64; PULSE 72
== END 2017-10-02 16:21 | disposition home or self-care (01) ==
LOC: JER 15:44 → JERBED 18:29 → J4W 21:20
PROVIDERS: ADMIT Internal Medicine; ATTEND Family Medicine
PROC: 3E033GC Introduction of Other Therapeutic Substance into Peripheral Vein, Percutaneous Approach (ICD-10-PCS; principal; 2017-10-01)
PROC: 3E0337Z Introduction of Electrolytic and Water Balance Substance into Peripheral Vein, Percutaneous Approach (ICD-10-PCS; 2017-10-01)
DX: R07.89 Other chest pain (principal); R10.33 Periumbilical pain; K62.5 Hemorrhage of anus and rectum
CPT/HCPCS: 36415; 71046-TC-FY; 76705-TC; 80048; 80053; 80061; 81003; 82550; 82553; 83721; 83735; 84100; 84484; 84703; 85025; 93005; 93010; 93017; 93018; 93306-TC; 99285-25; G0378; J0131; J7030

== ENCOUNTER 2018-05-09 12:20 | Emergency (ER) | payer OTHER ==
[2018-05-09 12:32] VITALS: BP 136/83; PULSE 82; TEMP 97.8; BMI 32.9
[2018-05-09] MEDS ORDERED: ACETAMINOPHEN 325 MG TABLET (FP) PO ONE (13:01)
--- NOTE | 2018-05-09 13:02 | PDOC ---
History of Present Illness - General Chief Complaint: Pain, Acute Stated Complaint: CHEST PAIN / ABD PAIN Time Seen by Provider: 05/09/18 12:40 History Source: Patient Exam Limitations: No Limitations Past History - Past Medical History Allergies/Adverse Reactions: Allergies Allergy/AdvReac Type Severity Reaction Status Date / Time levofloxacin [From Levaquin] Allergy Mild Itching Verified 05/09/18 12:22 vancomycin Allergy Verified 05/09/18 12:22 PECANS Allergy Hives Uncoded 05/09/18 12:22 WALNUTS Allergy Uncoded 05/09/18 12:22 Home Medications: Ambulatory Orders Cetirizine HCl [Zyrtec -] 10 mg PO DAILY 10/01/17 Montelukast Na [Singulair -] 10 mg PO HS tablet 10/02/17 Escitalopram Oxalate [Lexapro -] 5 mg PO DAILY 05/09/18 Asthma: Yes COPD: No DVT: No - Surgical History Appendectomy: Yes - Immunization History Immunization Up to Date: No - Suicide/Smoking/Psychosocial Hx Smoking Status: Yes Smoking History: Never smoked Have you smoked in the past 12 months: No Number of Cigarettes Smoked Daily: 0 If you are a former smoker, when did you quit?: 3yrs Hx Alcohol Use: Yes (2 beers/week) Drug/Substance Use Hx: No Substance Use Type: None Hx Substance Use Treatment: No Abd/GI Specific PMHX - Complaint Specific PMHX GERD: No GI Ulcer Disease: No *Physical Exam - Vital Signs Last Vital Signs Temp Pulse Resp BP Pulse Ox 97.8 F 82 20 136/83 99 05/09/18 12:25 05/09/18 12:25 05/09/18 12:25 05/09/18 12:25 05/09/18 12:25 - Physical Exam General Appearance: No: Apparent Distress Respiratory/Chest: positive: Lungs Clear, Normal Breath Sounds. negative: Respiratory Distress Cardiovascular: positive: Regular Rhythm, Regular Rate, S1, S2. negative: Murmur Female Pelvic Exam: negative: adnexal tenderness Gastrointestinal/Abdominal: positive: Normal Bowel Sounds, Soft. negative: Tender, Distended, Guarding, Rebound Integumentary: positive: Normal Color Neurologic: positive: Alert, Normal Mood/Affect Moderate Sedation - Procedure Monitoring Vital Signs: Procedure Monitoring Vital Signs Temperature 97.8 F 05/09/18 12:25 Pulse Rate 82 02/17/19 12:25 Respiratory Rate 20 05/09/18 12:25 Blood Pressure 136/83 05/09/18 12:25 O2 Sat by Pulse Oximetry (%) 99 05/09/18 12:25 ED Treatment Course - LABORATORY CBC & Chemistry Diagram: 05/09/18 13:37 05/09/18 13:37 - RADIOLOGY Radiology Studies Ordered: Category Date Time Status CHEST PA & LAT [RAD] Stat Radiology 05/09/18 13:01 Ordered Medical Decision Making - Medical Decision Making 42 y/o F with hx of GERD, appendectomy, asthma, fibroids presents with R sided CP radiating to generalized abdomen and down to L knee. Patient has had multiple visits to ED for similar complaint, last visit was 09/2017 when she had TMST done which was normal. Mentions seeing her PCP, Dr. Mcbride, last week, who did blood test which were normal and was given one dose of IV abx (unsure of name) after which she had diarrhea for 3 days. Mentions feeling pressure in bladder when urinating and some discomfort. Denies fever, chills, sob, n/v, hematuria, urinary frequency/urgency, unusual vaginal discharge, vag bleeding. Patient appears comfortable; PE unremarkable EKG shows NSR at 80 bpm, nonischemic; less suspicious for ACS especially given recent normal stress test Plan: Labs, UA, UCx, meds, CXR, reassess 05/09/18 13:02 Labs and UA negative CXR negative Patient advised f/u with her PCP Stable for dc 05/09/18 15:59 *DC/Admit/Observation/Transfer Diagnosis at time of Disposition: Right-sided chest pain Abdominal pain Qualifiers: Abdominal location: generalized Qualified Code(s): R10.84 - Generalized abdominal pain - Discharge Dispostion Disposition: HOME Condition at time of disposition: Stable Decision to Admit order: No - Referrals Referrals: Phillip Haas MD [Primary Care Provider] - 2 Days - Patient Instructions Printed Discharge Instructions: DI for Abdominal Pain-Adult, DI for Chest Pain Additional Instructions: Thank you for choosing [facility]. It was a pleasure taking care of you. Your blood work and chest x-ray were normal Please follow-up with your PCP in 2-3 days for further evaluation Return to the Emergency Department if your symptoms worsen or persist or have other concerning symptoms. - Post Discharge Activity
[2018-05-09] MEDS ORDERED: ACETAMINOPHEN 325 MG TABLET (FP) ONE (13:32)
[2018-05-09 13:55] LABS: BASO % 0.7 % (0-2.0); EOS % 2.9 % (0-4.5); HEMATOCRIT 37.1 % (32.4-45.2); HEMOGLOBIN 13.3 GM/dL (10.7-15.3); LYMPH % 32.3 % (8-40); MCH 33.8 pg (25.7-33.7); MCHC 35.7 g/dl (32.0-36.0); MEAN CELL VOLUME 94.5 fl (80-96); MEAN PLT VOLUME 7.4 fl (7.5-11.1); MONO % 5.5 % (3.8-10.2); NEUT % 58.6 % (42.8-82.8); PLATELET COUNT 285 K/MM3 (134-434); RBC 3.93 M/mm3 (3.60-5.2); WHITE BLOOD COUNT 8.7 K/mm3 (4.0-10.0)
[2018-05-09 14:27] LABS: URINE APPEARANCE CLEAR; URINE BILIRUBIN NEGATIVE (<2.0 mg/dL); URINE COLOR LTYELLOW; URINE GLUCOSE (UA) NEGATIVE (NEGATIVE); URINE KETONE NEGATIVE (NEGATIVE); URINE LEUK ESTERASE NEGATIVE (NEGATIVE); URINE NITRITE NEGATIVE (NEGATIVE); URINE PROTEIN NEGATIVE (NEGATIVE); URINE UROBILINOGEN NEGATIVE mg/dL (0.2-1.0)
[2018-05-09 14:36] LABS: ALBUMIN 3.5 g/dl (3.4-5.0); ALK PHOS 103 U/L (45-117); ANION GAP 8 MMOL/L (8-16); BILIRUBIN,TOTAL 0.6 mg/dL (0.2-1); BLOOD UREA NITROGEN 15 mg/dL (7-18); CALCIUM 8.4 mg/dL (8.5-10.1); CHLORIDE 108 mmol/L (98-107); CO2 25 mmol/L (21-32); CREATININE 0.7 mg/dL (0.55-1.3); GLUCOSE,RANDOM 79 mg/dL (74-106); LIPASE 122 U/L (73-393); POTASSIUM 4.1 mmol/L (3.5-5.1); SGOT/AST 23 U/L (15-37); SGPT/ALT 28 U/L (13-61); SODIUM 140 mmol/L (136-145); TOT PROT 6.6 g/dl (6.4-8.2)
[2018-05-09] MEDS ORDERED: KETOROLAC TROMETHAMINE 30 MG/1 ML VIAL IM ONE (15:35)
[2018-05-09] MEDS ORDERED: KETOROLAC TROMETHAMINE 30 MG/1 ML VIAL ONE (15:51)
--- NOTE | 2018-05-10 10:35 | EKG ---
Test Reason : Blood Pressure : / mmHG Vent. Rate : 080 BPM Atrial Rate : 080 BPM P-R Int : 122 ms QRS Dur : 078 ms QT Int : 384 ms P-R-T Axes : 044 063 055 degrees QTc Int : 442 ms NORMAL SINUS RHYTHM NORMAL ECG WHEN COMPARED WITH ECG OF 01-OCT-2017 15:49, NO SIGNIFICANT CHANGE WAS FOUND Confirmed by GERALDINE CALLES MD ([id number]) on 05/10/2018 10:34:32 AM Referred By: Confirmed By:GERALDINE CALLES MD
== END 2018-05-09 16:22 | disposition home or self-care (01) ==
LOC: JER 12:20
PROC: 3E0233Z Introduction of Anti-inflammatory into Muscle, Percutaneous Approach (ICD-10-PCS; principal; 2018-05-09)
DX: R07.9 Chest pain, unspecified (principal); R10.84 Generalized abdominal pain
CPT/HCPCS: 36415; 71046-TC-FY; 80053; 81003; 83690; 84484; 84703; 85025; 87086; 93005; 93010; 99283-25

== ENCOUNTER 2018-05-25 12:04 | Emergency (ER) | payer OTHER ==
[2018-05-25 12:20] VITALS: PULSE 99; TEMP 98.5; BMI 32.9
[2018-05-25] MEDS ORDERED: SODIUM CHLORIDE 1,000 ML IV STA (12:24)
--- NOTE | 2018-05-25 12:35 | PDOC ---
History of Present Illness - General Chief Complaint: Diarrhea Stated Complaint: DIARRHEA Time Seen by Provider: 05/25/18 12:22 History Source: Patient - History of Present Illness Timing/Duration: reports: constant Past History - Past Medical History Allergies/Adverse Reactions: Allergies Allergy/AdvReac Type Severity Reaction Status Date / Time levofloxacin [From Levaquin] Allergy Mild Itching Verified 05/25/18 12:17 vancomycin Allergy Verified 05/25/18 12:17 PECANS Allergy Hives Uncoded 05/25/18 12:17 WALNUTS Allergy Uncoded 05/25/18 12:17 Home Medications: Ambulatory Orders Montelukast Na [Singulair -] 10 mg PO HS tablet 10/02/17 Hydroxyzine HCl 25 mg PO ASDIR 05/25/18 Asthma: Yes COPD: No DVT: No - Surgical History Appendectomy: Yes - Immunization History Immunization Up to Date: No - Suicide/Smoking/Psychosocial Hx Smoking Status: Yes Smoking History: Never smoked Have you smoked in the past 12 months: No Number of Cigarettes Smoked Daily: 0 If you are a former smoker, when did you quit?: 3yrs Hx Alcohol Use: Yes (2 beers/week) Drug/Substance Use Hx: No Substance Use Type: None Hx Substance Use Treatment: No Abd/GI Specific PMHX - Complaint Specific PMHX GERD: No GI Ulcer Disease: No Review of Systems - Review of Systems Constitutional: Yes: Weakness. No: Chills, Fever ABD/GI: Yes: Diarrhea. No: Blood Streaked Bowels, Constipated, Nausea, Vomiting , Abdominal cramping : No: Dysuria *Physical Exam - Vital Signs Last Vital Signs Temp Pulse Resp BP Pulse Ox 98.5 F 99 H 18 113/72 99 05/25/18 12:19 05/25/18 12:19 05/25/18 12:19 05/25/18 12:19 05/25/18 12:19 - Physical Exam General Appearance: Yes: Appropriately Dressed. No: Apparent Distress HEENT: positive: Normal Voice Neck: positive: Supple Respiratory/Chest: negative: Respiratory Distress Gastrointestinal/Abdominal: positive: Soft. negative: Tender, Distended Integumentary: positive: Dry, Warm Neurologic: positive: Fully Oriented, Alert, Normal Mood/Affect Moderate Sedation - Procedure Monitoring Vital Signs: Procedure Monitoring Vital Signs Temperature 98.5 F 05/25/18 12:19 Pulse Rate 99 H 05/25/18 12:19 Respiratory Rate 18 05/25/18 12:19 Blood Pressure 113/72 05/25/18 12:19 O2 Sat by Pulse Oximetry (%) 99 05/25/18 12:19 ED Treatment Course - LABORATORY CBC & Chemistry Diagram: 05/25/18 12:30 05/25/18 12:24 Medical Decision Making - Medical Decision Making 05/25/18 12:23 42 yo F, no sig hx, here w/ diarrhea. Pt reports persistent NB, watery diarrhea x 1 week that may be improving now. No sig abd pain and no n/v/f/c. No recent travel, abx use or sick contact. States sxs started after eating "bad cream cheese" at work. States cream cheese "tasted funny" at the time but had continued to eat it. C/o gen weakness at this time See exam Diarrhea No RF for serious dysentery Well hermelinda and stable w/ benign abd -labs -stool studies given duration of sxs -IVF -anticipate discharge w/ supportive tx 05/25/18 14:33 Labs unremarkable. Stool studies pending. Pt reports feeling better and current requesting discharge. Dc w/ supportive tx. *DC/Admit/Observation/Transfer Diagnosis at time of Disposition: Diarrhea Qualifiers: Diarrhea type: unspecified type Qualified Code(s): R19.7 - Diarrhea, unspecified - Discharge Dispostion Disposition: HOME Condition at time of disposition: Improved - Referrals Referrals: Phillip Haas MD [Primary Care Provider] - - Patient Instructions Printed Discharge Instructions: Diarrhea Additional Instructions: The cause of your diarrhea may be viral We did send off stool studies to rule out other source and will call you with results in 2-3 days. In the meantime, rest, drink plenty of fluids and eat as tolerated. If symptoms worsen, return to ER - Post Discharge Activity Forms/Work/School Notes: Back to Work
[2018-05-25 12:42] LABS: BASO % 1.3 % (0-2.0); HEMATOCRIT 39.5 % (32.4-45.2); HEMOGLOBIN 13.9 GM/dL (10.7-15.3); LYMPH % 30.4 % (8-40); MCH 33.5 pg (25.7-33.7); MCHC 35.1 g/dl (32.0-36.0); MEAN CELL VOLUME 95.4 fl (80-96); MEAN PLT VOLUME 7.8 fl (7.5-11.1); MONO % 4.2 % (3.8-10.2); NEUT % 62.1 % (42.8-82.8); PLATELET COUNT 351 K/MM3 (134-434); RBC 4.14 M/mm3 (3.60-5.2); RDW 13.7 % (11.6-15.6); WHITE BLOOD COUNT 10.2 K/mm3 (4.0-10.0)
[2018-05-25 13:13] LABS: ALBUMIN 3.6 g/dl (3.4-5.0); ALK PHOS 94 U/L (45-117); ANION GAP 8 MMOL/L (8-16); BILIRUBIN,TOTAL 0.5 mg/dL (0.2-1); BLOOD UREA NITROGEN 13 mg/dL (7-18); CALCIUM 8.3 mg/dL (8.5-10.1); CHLORIDE 107 mmol/L (98-107); CO2 25 mmol/L (21-32); CREATININE 0.9 mg/dL (0.55-1.3); GLUCOSE,RANDOM 107 mg/dL (74-106); SGOT/AST 19 U/L (15-37); SGPT/ALT 23 U/L (13-61); SODIUM 140 mmol/L (136-145); TOT PROT 6.9 g/dl (6.4-8.2)
[2018-05-25 13:23] LABS: PH,URINE 5.5 (5.0-8.0); URINE APPEARANCE Clear; URINE BILIRUBIN Negative (<2.0 mg/dL); URINE COLOR Yellow; URINE GLUCOSE (UA) Negative (NEGATIVE); URINE KETONE Trace (NEGATIVE); URINE LEUK ESTERASE Negative (NEGATIVE); URINE NITRITE Negative (NEGATIVE); URINE PROTEIN 1+ (NEGATIVE); URINE UROBILINOGEN 0.2 mg/dL (0.2-1.0)
[2018-05-25 13:35] LABS: EPI CELLS MODERATE /HPF (FEW); URINE MUCUS RARE
[2018-05-25 14:37] VITALS: BP 114/76
== END 2018-05-25 14:37 | disposition home or self-care (01) ==
LOC: JER 12:04
PROC: 3E0337Z Introduction of Electrolytic and Water Balance Substance into Peripheral Vein, Percutaneous Approach (ICD-10-PCS; principal; 2018-05-25)
DX: R19.7 Diarrhea, unspecified (principal); J45.909 Unspecified asthma, uncomplicated; Z88.1 Allergy status to other antibiotic agents; Z91.018 Allergy to other foods
CPT/HCPCS: 36415; 80053; 81003; 81015; 84703; 85025; 87045; 87046; 87177; 87186; 87209; 99283-25; J7030

== ENCOUNTER 2019-04-07 15:55 | Emergency (ER) | payer BC, OTHER ==
[2019-04-07 16:07] VITALS: BP 110/74; PULSE 74; TEMP 98; BMI 32.9
--- NOTE | 2019-04-07 16:10 | PDOC ---
Rapid Medical Evaluation Chief Complaint: Pain, Acute Time Seen by Provider: 04/07/19 16:07 Medical Evaluation: Allergies Allergy/AdvReac Type Severity Reaction Status Date / Time levofloxacin [From Levaquin] Allergy Mild Itching Verified 05/25/18 12:17 vancomycin Allergy Verified 05/25/18 12:17 PECANS Allergy Hives Uncoded 05/25/18 12:17 WALNUTS Allergy Uncoded 05/25/18 12:17 Vital Signs Temp Pulse Resp BP Pulse Ox 98.0 F 74 18 110/74 100 04/07/19 16:04 04/07/19 16:04 04/07/19 16:04 04/07/19 16:04 04/07/19 16:04 04/07/19 16:09 I performed a brief in-person evaluation of this patient. 43-year-old female no PMH presents with 3 days intermittent chest pain radiating to arm, as well as left-sided abd pain. Intermittent SOB. Pertinent physical exam findings: Alert, oriented, no distress. Lungs CTAB. RRR, S1, S2. Mild LUQ and LLQ tenderness to deep palpation. I have ordered the following: EKG CXR Abd and cardiac labs Patient to proceed to the ED for further evaluation. Discharge Disposition - Diagnosis Chest pain - Discharge Dispostion Condition at time of disposition: Stable - Referrals - Patient Instructions - Post Discharge Activity
[2019-04-07 16:52] LABS: BASO % 0.8 % (0-2.0); EOS % 4.4 % (0-4.5); HEMATOCRIT 37.6 % (32.4-45.2); HEMOGLOBIN 12.9 GM/dL (10.7-15.3); LYMPH % 42.3 % (8-40); MCH 31.9 pg (25.7-33.7); MCHC 34.3 g/dl (32.0-36.0); MEAN CELL VOLUME 93.2 fl (80-96); NEUT % 46.5 % (42.8-82.8); PLATELET COUNT 267 K/MM3 (134-434); RBC 4.03 M/mm3 (3.60-5.2); RDW 14.2 % (11.6-15.6); WHITE BLOOD COUNT 7.3 K/mm3 (4.0-10.0)
[2019-04-07 16:58] LABS: PH,URINE 6.5 (5.0-8.0); URINE APPEARANCE CLEAR; URINE BILIRUBIN NEGATIVE (NEGATIVE); URINE COLOR YELLOW; URINE GLUCOSE (UA) NEGATIVE (NEGATIVE); URINE KETONE NEGATIVE (NEGATIVE); URINE LEUK ESTERASE NEGATIVE (NEGATIVE); URINE NITRITE NEGATIVE (NEGATIVE); URINE PROTEIN NEGATIVE (NEGATIVE); URINE UROBILINOGEN 0.2 mg/dL (0.2-1.0)
[2019-04-07 17:05] LABS: INR 0.96 (0.83-1.09); PROTHROMBIN TIME (PATIENT) 11.3 SEC (9.7-13.0)
[2019-04-07 17:19] LABS: ALBUMIN 3.4 g/dl (3.4-5.0); ALK PHOS 134 U/L (45-117); ANION GAP 6 MMOL/L (8-16); BILIRUBIN,TOTAL 0.5 mg/dL (0.2-1); BLOOD UREA NITROGEN 11.8 mg/dL (7-18); CALCIUM 8.2 mg/dL (8.5-10.1); CHLORIDE 108 mmol/L (98-107); CO2 25 mmol/L (21-32); GLUCOSE,RANDOM 96 mg/dL (74-106); POTASSIUM 3.8 mmol/L (3.5-5.1); SGOT/AST 21 U/L (15-37); SGPT/ALT 25 U/L (13-61); SODIUM 139 mmol/L (136-145); TOT PROT 6.4 g/dl (6.4-8.2)
--- NOTE | 2019-04-07 18:08 | PDOC ---
History of Present Illness - General Chief Complaint: Pain, Acute Stated Complaint: CHEST PAIN/ABD.PAIN Time Seen by Provider: 04/07/19 16:07 History Source: Patient Exam Limitations: No Limitations Past History - Past Medical History Allergies/Adverse Reactions: Allergies Allergy/AdvReac Type Severity Reaction Status Date / Time levofloxacin [From Levaquin] Allergy Mild Itching Verified 05/25/18 12:17 vancomycin Allergy Verified 05/25/18 12:17 PECANS Allergy Hives Uncoded 05/25/18 12:17 WALNUTS Allergy Uncoded 05/25/18 12:17 Home Medications: Ambulatory Orders Montelukast Na [Singulair -] 10 mg PO HS tablet 10/02/17 Hydroxyzine HCl 25 mg PO ASDIR 05/25/18 Asthma: Yes COPD: No DVT: No - Surgical History Appendectomy: Yes - Immunization History Immunization Up to Date: No - Psycho Social/Smoking Cessation Hx Smoking Status: Yes Smoking History: Never smoked Have you smoked in the past 12 months: No Number of Cigarettes Smoked Daily: 0 If you are a former smoker, when did you quit?: 3yrs Information on smoking cessation initiated: No Hx Alcohol Use: No Drug/Substance Use Hx: No Substance Use Type: None Hx Substance Use Treatment: No *Physical Exam - Vital Signs Last Vital Signs Temp Pulse Resp BP Pulse Ox 98.0 F 74 18 110/74 100 04/07/19 16:04 04/07/19 16:04 04/07/19 16:04 04/07/19 16:04 04/07/19 16:04 - Physical Exam General Appearance: No: Apparent Distress Respiratory/Chest: positive: Lungs Clear, Normal Breath Sounds. negative: Respiratory Distress Cardiovascular: positive: Regular Rhythm, Regular Rate, S1, S2. negative: Murmur Gastrointestinal/Abdominal: positive: Normal Bowel Sounds, Soft. negative: Tender, Distended, Guarding, Rebound Musculoskeletal: negative: CVA Tenderness Integumentary: positive: Normal Color Neurologic: positive: Alert, Normal Mood/Affect Heart Score/ECG Review - History History: Slightly suspicious - Electrocardiogram EKG: Normal - Age Age: </= 45 - Risk Factors Based on the list above the patient has:: No risk factors known - Troponin Troponin: </= normal limit - Score Heart Score - Total: 0 ED Treatment Course - LABORATORY CBC & Chemistry Diagram: 04/07/19 16:15 04/07/19 16:15 - ADDITIONAL ORDERS Additional order review: Laboratory Results 04/07/19 04/07/19 04/07/19 16:15 16:15 16:15 PT with INR 11.30 INR 0.96 Sodium Potassium Chloride Carbon Dioxide Anion Gap BUN Creatinine Est GFR (CKD-EPI)AfAm Est GFR (CKD-EPI)NonAf Random Glucose Calcium Total Bilirubin AST ALT Alkaline Phosphatase Creatine Kinase Creatine Kinase Index CK-MB (CK-2) Troponin I Total Protein Albumin Lipase Urine Color Yellow Urine Appearance Clear Urine pH 6.5 Ur Specific [place] 1.015 Urine Protein Negative Urine Glucose (UA) Negative Urine Ketones Negative Urine Blood Negative Urine Nitrite Negative Urine Bilirubin Negative Urine Urobilinogen 0.2 Ur Leukocyte Esterase Negative Urine HCG, Qual Negative 04/07/19 04/07/19 16:15 16:15 PT with INR INR Sodium 139 Potassium 3.8 Chloride 108 H Carbon Dioxide 25 Anion Gap 6 L BUN 11.8 Creatinine 1.0 Est GFR (CKD-EPI)AfAm 79.35 Est GFR (CKD-EPI)NonAf 68.46 Random Glucose 96 Calcium 8.2 L Total Bilirubin 0.5 AST 21 ALT 25 Alkaline Phosphatase 134 H Creatine Kinase 162 Creatine Kinase Index 1.0 CK-MB (CK-2) 1.7 Troponin I < 0.02 Total Protein 6.4 Albumin 3.4 Lipase 156 Urine Color Urine Appearance Urine pH Ur Specific [place] Urine Protein Urine Glucose (UA) Urine Ketones Urine Blood Urine Nitrite Urine Bilirubin Urine Urobilinogen Ur Leukocyte Esterase Urine HCG, Qual 04/07/19 16:15 RBC 4.03 MCV 93.2 MCHC 34.3 RDW 14.2 MPV 8.0 Neutrophils % 46.5 D Lymphocytes % 42.3 H D Monocytes % 6.0 Eosinophils % 4.4 D Basophils % 0.8 Medical Decision Making - Medical Decision Making 43 y/o F hx of GERD, asthma, fibroids, appendectomy presents with LLQ abd pain radiating down to L knee x 3 days along with increased urinary frequency. Has had similar abdominal pain in the past, but states it subsided on its own. Also mentions R sided chest pain going up to neck x 2 weeks, worse with movement of body. Has had this pain in the past and states it is usually stress related. CP feels similar to CP in the past; pain is not exertional. Hx of negative stress test 09/2017. Denies fever, URI sxs, sob, n/v/d, dysuria, black/bloody stools, unusual vagina discharge. Denies smoking or drug use. Social alcohol use. Denies FH of CAD or VA. EKG: NSR at 74 bpm, no ST-T changes CXR negative Labs and urine unremarkable Patient appears comfortable, has been tolerating PO well Not suspicious for acute abdomen HS is 0; CP is likely MSK in nature Stable for dc 04/07/19 18:03 Discharge - Discharge Information Problems reviewed: Yes Clinical Impression/Diagnosis: Chest pain Qualifiers: Chest pain type: unspecified Qualified Code(s): R07.9 - Chest pain, unspecified Abdominal pain Qualifiers: Abdominal location: left lower quadrant Qualified Code(s): R10.32 - Left lower quadrant pain Condition: Stable Disposition: HOME - Admission No - Additional Discharge Information Prescription Drug Monitoring Program (I-STOP) results: I-STOP not reviewed - Follow up/Referral Referrals: Phillip Haas MD [Primary Care Provider] - - Patient Discharge Instructions Patient Printed Discharge Instructions: DI for Chest Pain, DI for Abdominal Pain-Adult Additional Instructions: Thank you for choosing [facility]. It was a pleasure taking care of you. Your labs, blood work and chest xray were unremarkable Please follow-up with your doctor in 2 days for further evaluation Return to the Emergency Department if your symptoms worsen or persist or have other concerning symptoms. - Post Discharge Activity
--- NOTE | 2019-04-08 13:47 | EKG ---
Test Reason : Blood Pressure : / mmHG Vent. Rate : 074 BPM Atrial Rate : 074 BPM P-R Int : 102 ms QRS Dur : 076 ms QT Int : 400 ms P-R-T Axes : 042 060 053 degrees QTc Int : 444 ms SINUS RHYTHM WITH SHORT SD WHEN COMPARED WITH ECG OF 09-MAY-2018 12:35, NO SIGNIFICANT CHANGE WAS FOUND Confirmed by ROXANA RO MD ([id number]) on 04/08/2019 1:47:26 PM Referred By: Confirmed By:ROXANA RO MD
== END 2019-04-07 19:00 | disposition home or self-care (01) ==
LOC: JER 15:55
DX: R07.9 Chest pain, unspecified (principal); R10.32 Left lower quadrant pain; K21.9 Gastro-esophageal reflux disease without esophagitis; J45.909 Unspecified asthma, uncomplicated; Z86.2 Personal history of diseases of the blood and blood-forming organs and certain disorders involving the immune mechanism; Z88.1 Allergy status to other antibiotic agents; Z91.018 Allergy to other foods
CPT/HCPCS: 36415; 71046-TC-FY; 80053; 81003; 82550; 82553; 83690; 84484; 84703; 85025; 85610; 93005; 93010; 99282-25

== ENCOUNTER 2022-01-21 13:16 | Emergency (ER) | payer BC, OTHER ==
[2022-01-21 13:37] VITALS: BP 104/68; PULSE 81; RESP 18; TEMP 98.3; BMI 32.9
[2022-01-21] MEDS ORDERED: IBUPROFEN 600 MG TABLET (FP) PO ONE ×2 (14:18→14:19)
== END 2022-01-21 15:11 | disposition home or self-care (01) ==
LOC: JER 13:16
DX: R05.1 Acute cough (principal); M79.10 Myalgia, unspecified site; R68.83 Chills (without fever)
CPT/HCPCS: 0241U-QW; 99283-25

== ENCOUNTER 2024-11-23 10:04 | Emergency (ER) | payer BC, OTHER ==
[2024-11-23 10:15] VITALS: BP 138/99; PULSE 100; RESP 18; TEMP 97.8; BMI 37.5
[2024-11-23] MEDS ORDERED: IBUPROFEN 600 MG TABLET (FP) PO ONE (10:57)
[2024-11-23] MEDS: IBUPROFEN 600 MG TABLET (FP) PO ONE (11:03)
== END 2024-11-23 11:48 | disposition home or self-care (01) ==
LOC: JER 10:04 → JERFT 10:04
DX: S93.401A Sprain of unspecified ligament of right ankle, initial encounter (principal); W01.0XXA Fall on same level from slipping, tripping and stumbling without subsequent striking against object, initial encounter; Y92.009 Unspecified place in unspecified non-institutional (private) residence as the place of occurrence of the external cause
CPT/HCPCS: 73610-TC-RT-FY; 99283-25